=== PATIENT | female | born 1945 | race Caucasian/White ===

== ENCOUNTER → 2017-02-13 | Outpatient (CLI) | payer BC ==
[~2017-02-13] MED LIST: ACET-1138 PO; AMT25 PO; ASPI81TA28 PO; CALCTAB5 PO; CLB200 PO; COEN100C7 PO; ESOM20CA PO; LEVO100T7 PO; LOSA1TAB38 PO; METO25TA3 PO; OMEG10007 PO; PRAV20TA PO; SNK PO; ULT50X PO; [UNRECOGNIZED DRUG - REMARK] PO
--- NOTE | 2017-02-13 10:17 | DIAGNOSTIC IMAGING REPORT ---
CT SCAN OF THE CHEST WITHOUT IV CONTRAST CLINICAL HISTORY: Follow-up right lower lobe lesion. COMPARISON STUDY: Chest CT dated 09/19/2016 and 11/12/2015. PET/CT dated 01/11/2016. TECHNIQUE: CT scan of the thorax was performed from the thoracic inlet to the upper abdomen. Images are reviewed in the axial, sagittal, and coronal planes. IV contrast was not administered for this examination. CT DOSE: 331.07 mGycm FINDINGS: Thyroid: Atrophic. Thoracic aorta: There is mild atherosclerotic calcification of the thoracic aorta, which is normal in caliber and demonstrates 4-vessel variant arch anatomy. Heart: The heart is normal in size and without pericardial effusion. There are scattered coronary artery calcifications. The pulmonary trunk is normal in caliber. Lungs and pleural spaces: Biapical scarring is observed. There is no airspace consolidation or pleural effusion. There is a 1.8 x 1.0 cm (previously measured 2.3 x 1.4 cm) spiculated nodule in the right lower lobe seen on image #203. This distorts the adjacent major fissure and contains small calcifications either within or adjacent to the lesion. A 5 mm pulmonary nodule is seen in the left lower lobe on image #186. No new lesions are seen. The trachea and central airways are clear. Mediastinum: There is no mediastinal lymphadenopathy. Kiki: Not well assessed without IV contrast. Axillae: There is no axillary lymphadenopathy. Upper abdomen: Partially visualized upper abdominal viscera is within normal limits. Skeletal structures: The skeletal structures are osteopenic. No lytic or blastic bony lesions are seen. Mild degenerative change is seen throughout the thoracic spine. Arthritic change is also seen in the shoulders, and a surgical anchor is noted in the left humeral head. Soft tissues: Bilateral breast implants are identified. IMPRESSION: 1. Again seen is a spiculated nodule in the right lower lobe which distorts the adjacent major fissure. This has decreased in size from 09/19/2016 and remains pathologically indeterminant. Tissue sampling will likely be required for definitive characterization. 2. A 5 mm pulmonary nodule in the left lower lobe is unchanged. No new pulmonary nodules are identified. 3. There is no airspace consolidation or pleural effusion. 4. Additional changes as above. Electronically signed by: Joseph Bernabe M.D. 02/13/2017 10:15 AM Dictated Date/Time: 02/13/2017 10:09 AM
== END | disposition home or self-care (01) ==
LOC: C.CTS 09:50
PROVIDERS: ATTEND Internal Medicine Pulmonary Disease
DX: R91.8 Other nonspecific abnormal finding of lung field (principal); R91.1 Solitary pulmonary nodule

== ENCOUNTER → 2017-03-01 | Outpatient (CLI) | payer BC | END | disposition home or self-care (01) | LOC: C.PAPS 10:48 | PROVIDERS: ATTEND Obstetrics & Gynecology | DX: Z01.419 Encounter for gynecological examination (general) (routine) without abnormal findings (principal) ==

== ENCOUNTER → 2017-05-05 | Outpatient (CLI) | payer BC ==
[2017-05-05 10:11] LABS: CHOLESTEROL/HDL RATIO 2.5
[2017-05-05 11:14] LABS: ESTIMATED AVERAGE GLUCOSE 114 mg/dl; HA1C FLAG Normal (Normal)
== END | disposition home or self-care (01) ==
LOC: C.LAB1850 07:40
PROVIDERS: ATTEND Internal Medicine
DX: E78.00 Pure hypercholesterolemia, unspecified (principal); R73.9 Hyperglycemia, unspecified; E03.9 Hypothyroidism, unspecified

== ENCOUNTER → 2017-08-23 | Outpatient (CLI) | payer BC ==
[~2017-08-23] MED LIST changes: +OPTIRAY 320 IV PRN
--- NOTE | 2017-08-23 08:24 | DIAGNOSTIC IMAGING REPORT ---
CT OF THE CHEST WITH IV CONTRAST CLINICAL HISTORY: R91.8 Multiple pulmonary [id number] COMPARISON STUDY: 02/13/2017 , 07/11/2016 TECHNIQUE: Following the IV administration of 92 mL of Optiray-320, CT of the thorax was performed from the thoracic inlet to the lung bases. Images are reviewed in the axial, sagittal, and coronal planes. IV contrast was administered without complication. A dose lowering technique was utilized adhering to the principles of ALARA. CT DOSE: 323.19 mGycm FINDINGS: Thyroid: Imaged portions of the thyroid gland are normal in appearance. Thoracic aorta: The thoracic aorta is normal in course and caliber, noting standard 3-vessel arch anatomy. No aneurysm or dissection is seen. Pulmonary vasculature: The pulmonary trunk is normal in caliber. There are no central filling defects identified to suggest pulmonary embolus. Note that this examination was not protocoled for the evaluation of pulmonary emboli. HEART: The heart is normal in size and configuration, without pericardial effusion. Lungs and pleural spaces: There are no pleural effusions. There is a stable 5 mm solid left lower lobe pulmonary nodule as visualized on image #[id number]. There is a stable bilobed 5 x 2 mm right lower lobe pulmonary nodule as visualized in image #[id number]. There is a flat parenchymal opacity within the right lower lobe which is smaller than on the prior study. This is felt to represent resolving atelectasis. No new or enlarging pulmonary masses are visualized. Mediastinum: There is no mediastinal lymphadenopathy. Kiki: Clear. Axilla: Clear. Upper abdomen: There is hepatic steatosis. Skeletal structures: There are no lytic or blastic osseous lesions. IMPRESSION: 1. Interval decrease in the size of the relatively flat right lower lobe opacity. The interval decrease in the size of this lesion and its appearance favors resolving atelectatic change. 2. Stable solid 5 mm left lower lobe pulmonary nodule 3. Stable 2 x 5 mm right lower lobe pulmonary nodule 4. No new or enlarging nodules are visualized 5. No evidence of pathologic adenopathy Electronically signed by: Mario Lorenzana M.D. 08/23/2017 8:22 AM Dictated Date/Time: 08/23/2017 8:13 AM
== END | disposition home or self-care (01) ==
LOC: C.CTS 07:47
PROVIDERS: ATTEND Internal Medicine Pulmonary Disease
DX: R91.8 Other nonspecific abnormal finding of lung field (principal)

== ENCOUNTER → 2017-10-30 | Outpatient (CLI) | payer BC ==
[~2017-10-30] MED LIST changes: -OPTIRAY 320 IV PRN
[2017-10-30 09:40] LABS: HEMATOCRIT 38.4 % (37-47); MEAN CELL VOLUME 98.5 fL (80-100); MEAN CORPUSCULAR HEMOGLOBIN 33.1 pg (25-34); MEAN CORPUSCULAR HGB CONC 33.6 g/dl (32-36); PLATELET COUNT 259 K/uL (130-400); WHITE BLOOD COUNT 5.82 K/uL (4.8-10.8)
[2017-10-30 10:27] LABS: ESTIMATED AVERAGE GLUCOSE 114 mg/dl; HA1C FLAG Normal (Normal)
[2017-10-30 10:33] LABS: ALT/SGPT 41 U/L (12-78); AST/SGOT 25 U/L (15-37); BLOOD UREA NITROGEN 13 mg/dl (7-18); BUN/CREATININE RATIO 16.6 (10-20); CALCIUM 8.8 mg/dl (8.5-10.1); CARBON DIOXIDE 28 mmol/L (21-32); CHLORIDE 105 mmol/L (98-107); CREATININE 0.79 mg/dl (0.60-1.20); GLUCOSE 100 mg/dl (70-99); HDL CHOLESTEROL 91 mg/dl; POTASSIUM 4.2 mmol/L (3.5-5.1); SODIUM 137 mmol/L (136-145)
[2017-10-30 10:44] LABS: CHOLESTEROL 191 mg/dl (0-200); CHOLESTEROL/HDL RATIO 2.1; LDL CHOLESTEROL CALCULATED 84 mg/dl; TRIGLYCERIDES 81 mg/dl (0-150); VERY LOW DENSITY LIPOPROT CALC 16 mg/dl
== END | disposition home or self-care (01) ==
LOC: C.LAB1850 08:04
PROVIDERS: ATTEND Internal Medicine
DX: R73.9 Hyperglycemia, unspecified (principal); R91.8 Other nonspecific abnormal finding of lung field; E78.00 Pure hypercholesterolemia, unspecified; E03.9 Hypothyroidism, unspecified

== ENCOUNTER → 2018-06-22 | Outpatient (CLI) | payer BC ==
[~2018-06-22] MED LIST changes: +ACET-1256 PO; +CALC-51 PEG; +CLB/200 PO; -METO25TA3 PO; +METO25TA4 PO; +OXYC-57 PO; +TRAM-10 PO
[2018-06-22 09:58] LABS: ALT/SGPT 51 U/L (12-78); AST/SGOT 29 U/L (15-37); BLOOD UREA NITROGEN 13 mg/dl (7-18); CALCIUM 8.4 mg/dl (8.5-10.1); CARBON DIOXIDE 27 mmol/L (21-32); CHOLESTEROL 192 mg/dl (0-200); CREATININE 0.86 mg/dl (0.60-1.20); GLUCOSE 93 mg/dl (70-99); LDL CHOLESTEROL CALCULATED 100 mg/dl; POTASSIUM 4.4 mmol/L (3.5-5.1); SODIUM 138 mmol/L (136-145)
== END | disposition home or self-care (01) ==
LOC: C.LAB1850 08:35
PROVIDERS: ATTEND Internal Medicine
DX: E78.00 Pure hypercholesterolemia, unspecified (principal); I10 Essential (primary) hypertension; E03.9 Hypothyroidism, unspecified

== ENCOUNTER → 2018-07-03 | Outpatient (CLI) | payer BC ==
[~2018-07-03] MED LIST changes: -ACET-1138 PO; -CALC-51 PEG; -CALCTAB5 PO; -CLB200 PO; -OXYC-57 PO; -SNK PO; -ULT50X PO; -[UNRECOGNIZED DRUG - REMARK] PO
[2018-07-03 15:52] LABS: BASO % 0.4 %; BASO ABS # 0.03 K/uL (0-0.2); EOS % 3.1 %; EOS ABS # 0.21 K/uL (0-0.5); HEMOGLOBIN 12.8 g/dL (12.0-16.0); IG# 0.02 K/uL (0.00-0.02); LYMPH ABS # 2.25 K/uL (1.2-3.4); MEAN CELL VOLUME 97.9 fL (80-100); MEAN CORPUSCULAR HEMOGLOBIN 33.9 pg (25-34); MEAN CORPUSCULAR HGB CONC 34.6 g/dl (32-36); MEAN PLATELET VOLUME 9.9 fL (7.4-10.4); MONO % 6.2 %; MONO ABS # 0.42 K/uL (0.11-0.59); NEUT ABS # 3.89 K/uL (1.4-6.5); PLATELET COUNT 237 K/uL (130-400); RED CELL DISTRIBUTION WIDTH CV 13.5 % (11.5-14.5); RED CELL DISTRIBUTION WIDTH SD 48.5 fL (36.4-46.3); WHITE BLOOD COUNT 6.82 K/uL (4.8-10.8)
== END | disposition home or self-care (01) ==
LOC: C.CPL 15:24
PROVIDERS: ATTEND Orthopaedic Surgery
DX: S43.086A Other dislocation of unspecified shoulder joint, initial encounter (principal); X58.XXXA Exposure to other specified factors, initial encounter

== ENCOUNTER → 2018-07-12 | Day surgery (SDC) | payer BC ==
[2018-06-27 15:35] VITALS: Ht 160 cm; Wt 79.5 kg
[~2018-07-12] VITALS: Ht 160 cm; Wt 79.5 kg
[~2018-07-12] MED LIST changes: +ATROPINE SULFATE 0.1 MG/ML 5ML SYR IV PRN; +CEFAZOLIN 2000MG IV PUSH 15 ML IV SCH; +DEXAMETHASONE SOD INJ 4 MG/ML VIAL ONE; +EpHEDrine SULFATE INJ 50 MG/ML AMP IV PRN; +EpINEphrine INJ 1MG/ML AMP 1 MG/ML AMP ONE; +FENTANYL CITRATE INJ 50 MCG/1 ML 2 ML VIAL ONE; +FLUMAZENIL 0.1 MG/1 ML 10 ML VIAL IV ONE; +HYDROmorphone INJ 0.5 MG/0.5 ML SYR IV PRN; +KETO10TA PO; +KETOROLAC TROMETHAMINE 30 MG/ML VIAL IV. PRN; +LACTATED RINGER'S 1000ML 1,000 ML IV SCH; +LIDOCAINE HCL 2% 2 ML VIAL (20MG/ML) ONE; +MIDAZOLAM HCL 1 MG/ML 2ML VIAL ONE; +ONDANSETRON INJ 2 MG/ML 2 ML VIAL IV PRN; +ONDANSETRON INJ 2 MG/ML 2 ML VIAL ONE; +OXYC-57 PO; +OXYCODONE/ACETAMINOPHEN 5-325 TAB PO PRN; +PROPOFOL IV EMULSION 10 MG/ML 20 ML VIAL ONE; +ROPIVACAINE 0.5% 5 MG/ML 30 ML VIAL ONE; +SODIUM CHLORIDE 0.9% 1000ML 1,000 ML IV SCH
--- NOTE | 2018-07-12 10:04 | History & Physical Bridge Note ---
H&P Re-Evaluation Bridge Note: I have examined the patient, reviewed the History & Physical and in the interval since the performance of the History & Physical I have noted the following changes of clinical significance: No changes noted
[2018-07-12] MEDS: BUPIVACAINE 0.25% 30 ML VIAL ONE (11:30)
--- NOTE | 2018-07-12 13:12 | [facility] Post Operative Brief Note ---
Immediate Operative Summary Operative Date Jul 12, 2018. Pre-Operative Diagnosis Right Shoulder Large Rotator Cuff Tear Post-Operative Diagnosis Same Procedure(s) Performed Right Shoulder Arthroscopy With Large Rotator Cuff Repair Surgeon Dr. Pimentel Asbestos Worker Helper Surgeon(s) Shama Cartwright PA-C Estimated Blood Loss 5 mL Findings Consistent with Post-Op Diagnosis Specimens None Anesthesia Type [facility]
--- NOTE | 2018-07-12 13:18 | Discharge Instructions-SurgCtr ---
Discharge Instructions Date of Service Jul 12, 2018. Visit Reason for Visit: Right Shoulder Full Thickness Rotator Cuff Tear Discharge Discharge Diagnosis / Problem: SAME ABOVE Discharge Goals Goal(s): Decrease discomfort, Improve function Activity Recommendations Activity Limitations: as noted below Lifting Limitations: until after follow-up appointment Exercise/Sports Limitations: until after follow-up appointment Shower/Bathe: tomorrow Anesthesia . Post Anesthesia Instructions: If you have had General Anesthesia or IV Sedation: * Do not drive today. * Resume driving when surgeon permits. * Do not make important decisions or sign legal documents today. * Call surgeon for: 1. Temperature elevations greater than 101 degrees F. 2. Uncontrollable pain. 3. Excessive bleeding. 4. Persistent nausea and vomiting. 5. Medication intolerance (nausea, vomiting or rash). * For nausea and vomiting use only clear liquids such as: tea, soda, bouillon until nausea subsides, then gradually increase diet as tolerated. * If you have any concerns or questions, call your surgeon's office. If physician is unavailable and it is an emergency, call 911 or go to the nearest emergency room. . Instructions / Follow-Up Instructions / Follow-Up MEDICATIONS: * Resume previous medications unless instructed otherwise by your surgeon. * Always take pain medication on a full stomach or with food to avoid upset stomach. * Do not drink alcohol or drive while taking narcotics. * Ibuprofen or Tylenol may be taken if narcotic not needed. SPECIAL CARE INSTRUCTIONS: __ None _X_ Keep extremity elevated and iced x 48 hours; apply ice 20-30 minutes 8-10 times/day. May remove at night. __ Sling __24 hrs/day __ Remove at night _X_ Shoulder Immobilizer (MAY REMOVE AFTER 48 HOURS ONLY TO SHOWER) _X_ 24 hrs/day __ Remove at night _X_ Dressing __ Maintain until seen in office, may shower with plastic over site _X_ Remove dressings in 24-48 hours and then may shower _X_ Cover incisions with band-aids after showering __ Do not remove steri-strips Call physician if chills or temperature rises above 102 degrees or pain unrelieved by prescribed pain medications at . . Diet Recommendations Home Diet: no limitations Fluid Restriction: None Procedures Procedures Performed: Right Shoulder Arthroscopy With Large Rotator Cuff Repair Pending Studies Studies pending at discharge: no Work Instructions Return To Work: after follow-up Lifting Limitations: NO LIFTING WITH RIGHT ARM Medical Emergencies . Who to Call and When: Medical Emergencies: If at any time you feel your situation is an emergency, please call 911 immediately. . Non-Emergent Contact Non-Emergency issues call your: Surgeon Call Non-Emergent contact if: your pain is not controlled, wound has increased drainage, wound has increased redness . . "Provider Documentation" section prepared by Ulisses Cartwright. .
[2018-07-12 13:55] VITALS: TEMP 36.8
--- NOTE | 2018-07-12 14:04 | Anesthesia Progress Nt - [facility] ---
Anesthesia Post Op Note Date & Time Jul 12, 2018 at 14:04 Vital Signs Pain Intensity: 0 Vital Signs Past 12 Hours Date Time Temp Pulse Resp B/P (MAP) Pulse Ox O2 Delivery O2 Flow Rate FiO2 07/12/18 13:57 139/58 07/12/18 13:55 69 18 07/12/18 13:55 36.8 62 24 139/58 95 Room Air 07/12/18 13:55 64 18 93 07/12/18 13:51 120/66 07/12/18 13:50 61 26 07/12/18 13:50 63 26 07/12/18 13:46 145/61 07/12/18 13:45 22 07/12/18 13:45 64 22 07/12/18 13:41 115/73 07/12/18 13:40 68 18 98 07/12/18 13:40 66 18 07/12/18 13:36 125/47 07/12/18 13:35 51 12 99 07/12/18 13:35 51 12 07/12/18 13:31 120/47 07/12/18 13:30 50 13 07/12/18 13:30 50 13 99 07/12/18 13:26 111/44 07/12/18 13:25 51 13 07/12/18 13:25 51 13 99 07/12/18 13:21 109/44 07/12/18 13:20 52 14 07/12/18 13:20 52 14 99 07/12/18 13:16 99/49 07/12/18 13:15 36.0 52 20 99/49 99 Mask 6 07/12/18 11:10 65 0 07/12/18 11:09 72 07/12/18 11:06 145/63 07/12/18 11:04 64 0 94 07/12/18 11:04 64 07/12/18 11:02 161/85 07/12/18 10:59 74 0 97 07/12/18 10:59 75 07/12/18 10:56 158/85 07/12/18 10:54 69 07/12/18 10:54 68 0 97 07/12/18 10:51 155/74 07/12/18 10:49 72 07/12/18 10:49 72 0 97 07/12/18 10:46 155/70 07/12/18 10:44 70 0 96 07/12/18 10:44 70 07/12/18 10:41 142/81 07/12/18 10:39 71 07/12/18 10:39 71 0 97 07/12/18 10:36 162/81 07/12/18 10:34 72 07/12/18 10:34 72 0 96 07/12/18 10:32 146/97 07/12/18 10:25 36.9 71 18 146/97 (113) 97 Room Air Notes Mental Status: alert / awake / arousable, participated in evaluation Pt Amnestic to Procedure: Yes Nausea / Vomiting: adequately controlled Pain: adequately controlled Airway Patency, RR, SpO2: stable & adequate BP & HR: stable & adequate Hydration State: stable & adequate Anesthetic Complications: no major complications apparent
[2018-07-12 15:03] VITALS: BP 135/74; PULSE 77; O2SAT 96
--- NOTE | 2018-07-12 15:55 | OPERATIVE REPORT ---
DATE OF OPERATION: 07/12/2018 PREOPERATIVE DIAGNOSIS: Massive right rotator cuff tear following dislocation. POSTOPERATIVE DIAGNOSIS: Massive right rotator cuff tear following dislocation. PROCEDURES: Right shoulder diagnostic arthroscopy with extensive debridement, acromioplasty and massive rotator cuff repair. SURGEON: Dr. Joe Pimentel. DOPE WEIGH OPERATOR: Ulisses Cartwright PA-C, whose assistance was necessary for positioning the arm and help with instrumentation. ANESTHESIA: General with a right interscalene nerve block. COMPLICATIONS: None. CONDITION: Stable to PACU. INDICATIONS: Nimo is a pleasant 72-year-old female who dislocated her right shoulder 3 months ago. She was slow to recover. I got an MRI. MRI showed a massive rotator cuff tear. She elected to undergo arthroscopy. DESCRIPTION OF PROCEDURE: 07/12/2018, she arrived at [facility] for the above procedure. She was seen in the preoperative holding area and the operative extremity was identified and signed. She was given a preoperative antibiotic and a right interscalene nerve block. She was taken back to the operating room, laid on the table in supine position and put under general anesthesia. She was then put into the beachchair position. The right shoulder was prepped and draped in sterile fashion. Time-out was done and the patient's operative extremity was properly identified. A scope was introduced in the posterior portal. Diagnostic arthroscopy showed no cartilage damage to the humeral head or the glenoid. There was a little fraying of the labrum. The biceps tendon was absent. There was a tear of the upper half of the subscapularis, the entire supraspinatus and the majority of the infraspinatus. An anterior portal was made. A shaver was used to do a debridement of the intraarticular structures. The scope was then put into the subacromial space. A lateral portal was made. A shaver was used to do a complete subacromial and subdeltoid bursectomy. Significant time was spent doing extensive debridement to ensure properly visualize the extent of the massive cuff tear. An ablator was used to tease the coracoacromial ligament off the undersurface of the acromion. I do not feel acromioplasty was necessary. An additional anterolateral portal was made and Sujata cannulas were placed in each lateral portals. The greater tuberosity was prepared with a ring curette and a microfracture. The rotator cuff was then fixed with an Arthrex SpeedBridge configuration using BioComposite SwiveLock suture anchors loaded with FiberTapes. The tapes were passed through the tendon at the anticipated articular margin. The tapes were then brought down to 1 of 4 lateral row SwiveLock suture anchors. This gave a nice knotless SpeedBridge repair. Multiple pictures were taken. The stay stitches were also passed through the tendon and tied across anchor to each other to hold down the medial row. The scope was placed back into the glenohumeral joint and the articular margin of the rotator cuff had been restored. Pictures were taken. Arthroscopic instruments were removed from the shoulder. Portal sites were closed with 3-0 nylon. She was then placed in a soft dressing and abduction arm sling. She was then extubated, transferred to a litter and taken to the postanesthesia care unit in stable condition. She tolerated the procedure well. I attest to the content of the Intraoperative Record and any orders documented therein. Any exception s are noted below.
== END | disposition home or self-care (01) ==
LOC: X.SURG 10:07
PROVIDERS: ATTEND Orthopaedic Surgery
DX: M75.101 Unspecified rotator cuff tear or rupture of right shoulder, not specified as traumatic (principal); I10 Essential (primary) hypertension; M79.7 Fibromyalgia; E03.9 Hypothyroidism, unspecified; Z79.899 Other long term (current) drug therapy; Z79.82 Long term (current) use of aspirin; K21.9 Gastro-esophageal reflux disease without esophagitis; M19.90 Unspecified osteoarthritis, unspecified site; Z88.5 Allergy status to narcotic agent; Z88.8 Allergy status to other drugs, medicaments and biological substances

== ENCOUNTER 2019-05-31 14:20 | Inpatient (IN) ==
[2019-05-31] MEDS ORDERED: ONDANSETRON INJ 2 MG/ML 2 ML VIAL IV STA (14:53)
[2019-05-31] MEDS ORDERED: KETOROLAC TROMETHAMINE 15 MG/ML VIAL IV STA (14:53)
[2019-05-31 14:59] LABS: Basophils # (auto) 0.02 K/uL (0-0.2); Basophils % (auto) 0.2 %; Eosinophils # (auto) 0.02 K/uL (0-0.5); Eosinophils % (auto) 0.2 %; Hematocrit (blood only) 38.3 % (37-47); Hemoglobin 13.1 g/dL (12.0-16.0); Immature Granulocytes # (auto) 0.03 K/uL (0.00-0.02); Immature Granulocytes % (auto) 0.3 %; Lymphocytes # (auto) 1.05 K/uL (1.2-3.4); Lymphocytes % (auto) 8.9 %; Mean Corpuscular Hgb Conc 34.2 g/dL (32-36); Mean Corpuscular Volume 96.7 fL (80-100); Mean Platelet Volume 10.2 fL (7.4-10.4); Monocytes # (auto) 0.56 K/uL (0.11-0.59); Monocytes % (auto) 4.7 %; Neutrophils # (auto) 10.15 K/uL (1.4-6.5); Neutrophils % (auto) 85.7 %; Platelet Count 239 K/uL (130-400); Red Blood Count 3.96 M/uL (4.2-5.4); White Blood Count 11.83 K/uL (4.8-10.8)
[2019-05-31] MEDS ORDERED: SODIUM CHLORIDE 0.9% 500 ML IV SCH (15:00)
[2019-05-31 15:24] LABS: Albumin Level 3.6 gm/dl (3.4-5.0); BUN Creatinine Ratio 16.8 (10-20); Bilirubin,Total 0.6 mg/dl (0.2-1); Calcium 9.5 mg/dl (8.5-10.1); Creatinine Clr Calc Pharmacy 59.7 ml/min; Est GFR (African American) 80.5; Est GFR (Non-African American) 69.5; Globulin 3.7 gm/dl (2.5-4.0); Total Protein 7.3 gm/dl (6.4-8.2)
[2019-05-31 15:35] LABS: Appearance Urine Cloudy (Clear); Bacteria Urine Automated Negative (Negative); Bilirubin Urine Negative (Negative); Blood Urine Negative (Negative); Cast Urine Automated 0 /lpf (0-5); Color Urine Yellow; Glucose Urine UA Negative (Negative); Ketones Urine Trace (Negative); Leukocyte Esterase Urine Negative (Negative); Nitrite Urine Negative (Negative); Protein Urine Negative (Negative); RBC Urine Automated 0-4 /hpf (0-4); Specific Gravity Urine 1.021 (1.000-1.030); Urobilinogen Urine Negative (Negative); WBC Urine Automated 0 /hpf (0-5); pH Urine 7.5 (4.5-7.5)
[2019-05-31] MEDS ORDERED: IOVERSOL 100ml IV PRN (15:43)
--- NOTE | 2019-05-31 15:59 | CT Scan Report ---
ABDOMEN AND PELVIS CT WITH IV CONTRAST CT DOSE: 480.69 mGy.cm HISTORY: Acute left lower quadrant abdominal pain llq pain TECHNIQUE: Multiaxial CT images of the abdomen and pelvis were performed following the use of intrave nous contrast. A dose lowering technique was utilized adhering to the principles of ALARA. COMPARISON STUDY: PET CT 01/11/2016 FINDINGS: Mild dependent subsegmental bibasilar atelectasis. There is no pneumatosis or pneumoperitoneum. The c ardiac chambers appear unremarkable. Coronary arterial calcifications are noted. Mildly contracted gallbladder. Spleen, liver, pancreas and adrenal glands appear unremarkable. There are no renal or ureteral calculi or obstructive uropathy identified. 8 mm cyst of the inferior pole r ight kidney. Urinary bladder and uterus appear unremarkable. Moderate mixed plaque formation of the a jassi without aneurysm. No adenopathy by CT size criteria. No bowel obstruction. Mild nonspecific peritoneal thickening adjacent to the proximal sigmoid colon. Colonic diverticulosis without acute diverticulitis. Terminal ileum is fluid-filled. 6 mm appendicoli th noted about the proximal appendiceal lumen. The appendix is dilated and fluid-filled measuring up to 11 mm transversely. Mild periappendiceal inflammatory stranding with trace free fluid. No evidence of perforation or drainable fluid collection. Bilateral saline breast implants. Soft tissues are oth erwise unremarkable. The bones appear to be intact. Degenerative changes of the spine, pelvis and hip s. IMPRESSION: 1. Findings compatible with acute uncomplicated appendicitis with obstructing appendicolith. No evide nce of perforation or drainable fluid collection. 2. No bowel obstruction. 3. Colonic diverticulosis without acute diverticulitis. 4. Additional findings as above. Electronically signed by: Jr Cavazos M.D. 05/31/2019 3:58 PM
[2019-05-31 16:09] LABS: Potassium 3.7 mmol/L (3.5-5.1)
[2019-05-31] MEDS ORDERED: cefOXitin 2,000 MG/60 ML BAG IV STA (16:26)
--- NOTE | 2019-05-31 16:49 | History & Physical Report ---
Date of Service May 31, 2019 Assessment & Plan (1) Acute appendicitis: Will plan for laparoscopic appendectomy this evening. Preop Mefoxin. Dr Sigala- evaluated pt in ER - agree with plan lap appendectomy , possible open appendectomy History of Present Illness Primary Care Provider: Oseas Thorpe MD 73 y/o female awoke with LLQ abdominal pain around 7:00 this morning. Had a smoothie at 7:30. Continued to have pain and came to the ED. No fevers or chills. Possibly remote history of diverticulitis. Allergies Allergy/AdvReac Type Severity Reaction Status Date / Time vitamin E (d-alpha Allergy Mild RASH WITH Verified 05/31/19 14:43 tocopherol) OIL adhesive Allergy Unknown RASH AND Verified 05/31/19 14:43 BLISTERING WITH STERISTRIPES/DERMABOND BLISTERS codeine AdvReac Unknown NAUSEA AND Verified 05/31/19 14:43 VOMITING Home Medications Home Medications Medication Instructions Recorded Confirmed Type amitriptyline 25 mg PO HS 05/31/19 05/31/19 History aspirin 81 mg PO HS 05/31/19 05/31/19 History calcium carbonate-vitamin D3 1 cap PO QDL 05/31/19 05/31/19 History [Calcium 600 + D(3)] cannabidiol (CBD) extract 10 mg PO HS 05/31/19 05/31/19 History cannabidiol (CBD) extract 25 mg PO QDL 05/31/19 05/31/19 History coenzyme Q10 [CoQ-10] 100 mg PO QDL 05/31/19 05/31/19 History levothyroxine 112 mcg PO QAM 05/31/19 05/31/19 History losartan 100 mg PO QAM 05/31/19 05/31/19 History metoprolol succinate 75 mg PO HS 05/31/19 05/31/19 History omega 4-wju-zth-fish oil [[place]-3] 1 cap PO QDL 05/31/19 05/31/19 History pravastatin 20 mg PO HS 05/31/19 05/31/19 History tramadol 50 mg PO Q12 05/31/19 05/31/19 History Past Med/Surg History Medical History High cholesterol Hypertension Hypothyroid No significant past medical history Surgical History H/O laparoscopy Social History Preferred Language: Mohawk Feels Safe at Home: Yes Smoking Status: Former smoker Review of Systems Constitutional: no fever, no chills, no malaise and no anorexia Cardiovascular: no chest pain and no chest pain at rest Gastrointestinal: + abdominal pain, + heartburn and + nausea; no bloating and no vomiting Physical Exam Constitutional: WD/WN, vitals as above no acute distress Respiratory: normal respiratory effort, lungs clear to auscultation Cardiovascular: RRR, no murmur, no edema Gastrointestinal (Abdomen): Inspection/Auscultation: abdomen not distended Percussion/Palpation: + abdomen tender (RLQ mild but recently medicated) and abdomen soft; no guarding Skin: no rashes, warm and dry Results & Data Vital Signs (Past 12 Hours) Vital Signs Temp Pulse Pulse Resp BP BP Pulse Ox 05/31/19 15:53 85 18 150/61 H 99 05/31/19 15:06 59 L 20 171/66 H 97 05/31/19 14:24 37 C 70 17 153/83 H 98 (1) Acute appendicitis Acute appendicitis type: unspecified acute appendicitis type Qualified Code(s): K35.80 - Unspecified acute appendicitis
[2019-05-31] MEDS ORDERED: BUPIVACAINE 0.5 % 5 MG/1 ML MPF 30ML VIAL ONE (17:04)
--- NOTE | 2019-05-31 17:18 | Anesthesiology Consultation ---
Date of Service May 31, 2019 Assessment & Plan (1) Encounter for pre-operative examination: Chart Review Chart Review: Acceptable Risk for Surgery and Patient NOT seen in Pre Admission Testing Consults Requested none History Surgery Operation Date: 05/31/19 10:50 Proposed Procedures p Laparoscopic Appendectomy - Steven Sigala MD, FACS Height/Weight Height: 5 ft 3 in Weight: 80.5 kg Allergies Allergy/AdvReac Type Severity Reaction Status Date / Time vitamin E (d-alpha Allergy Mild RASH WITH Verified 05/31/19 14:43 tocopherol) OIL adhesive Allergy Unknown RASH AND Verified 05/31/19 14:43 BLISTERING WITH STERISTRIPES/DERMABOND BLISTERS codeine AdvReac Unknown NAUSEA AND Verified 05/31/19 14:43 VOMITING Medications Home Medications Medication Instructions Recorded Confirmed Last Taken amitriptyline 25 mg PO HS 05/31/19 05/31/19 05/30/19 aspirin 81 mg PO HS 05/31/19 05/31/19 05/30/19 calcium carbonate-vitamin D3 1 cap PO QDL 05/31/19 05/31/19 05/30/19 [Calcium 600 + D(3)] cannabidiol (CBD) extract 10 mg PO HS 05/31/19 05/31/19 05/30/19 cannabidiol (CBD) extract 25 mg PO QDL 05/31/19 05/31/19 05/30/19 coenzyme Q10 [CoQ-10] 100 mg PO QDL 05/31/19 05/31/19 05/30/19 levothyroxine 112 mcg PO QAM 05/31/19 05/31/19 05/31/19 losartan 100 mg PO QAM 05/31/19 05/31/19 05/31/19 metoprolol succinate 75 mg PO HS 05/31/19 05/31/19 05/30/19 omega 8-uww-fah-fish oil [[place]-3] 1 cap PO QDL 05/31/19 05/31/19 05/30/19 pravastatin 20 mg PO HS 05/31/19 05/31/19 05/30/19 tramadol 50 mg PO Q12 05/31/19 05/31/19 Unknown Active Medications Generic Name Dose Route Start Last Admin Trade Name Freq PRN Reason Stop Dose Admin Ioversol 88 ml 05/31/19 15:43 05/31/19 15:44 Optiray 320 100ml IV 06/04/19 15:42 88 ml ONCE PRN Administration Interaction Checking NPO Date Last Intake of Fluids: 05/31/19 Time Last Intake of Fluids: 14:00 Date Last Intake of Solids: 05/30/19 Past Medical History Medical History High cholesterol Hypertension Hypothyroid No significant past medical history Past Surgical History Surgical History H/O laparoscopy Social History Smoking Status: Former smoker Physical Exam Vital Signs Last Vital Signs Temp 37 C 05/31/19 14:24 Pulse 80 05/31/19 16:54 Resp 14 05/31/19 16:58 BP 172/78 H 05/31/19 16:54 Pulse Ox 99 05/31/19 16:58 Testing Laboratory Results 05/31/19 14:45 05/31/19 15:47 Urine Color Yellow 05/31/19 15:05 Urine Appearance Cloudy (Clear) A 05/31/19 15:05 Urine pH 7.5 (4.5-7.5) 05/31/19 15:05 Ur Specific [place] 1.021 (1.000-1.030) 05/31/19 15:05 Urine Protein Negative (Negative) 05/31/19 15:05 Urine Glucose (UA) Negative (Negative) 05/31/19 15:05 Urine Ketones Trace (Negative) H 05/31/19 15:05 Urine Nitrite Negative (Negative) 05/31/19 15:05 Ur Leukocyte Esterase Negative (Negative) 05/31/19 15:05 Urine WBC (Auto) 0 /hpf (0-5) 05/31/19 15:05 Urine RBC (Auto) 0-4 /hpf (0-4) 05/31/19 15:05 U Hyaline Cast (Auto) 0 /lpf (0-5) 05/31/19 15:05 U Epithel Cells (Auto) 10-20 /lpf (0-5) H 05/31/19 15:05 Urine Bacteria (Auto) Negative (Negative) 05/31/19 15:05
[2019-05-31] MEDS ORDERED: HYDROmorphone INJ 1 MG/ML SYRINGE IV PRN (17:24)
[2019-05-31] MEDS ORDERED: ATROPINE SULFATE 0.1 MG/ML 10ML SYR IV PRN (17:24)
[2019-05-31] MEDS ORDERED: ePHEDrine sulfate 50 MG/ML AMP IV PRN (17:24)
[2019-05-31] MEDS ORDERED: NEOSTIGMINE METHYLSULFATE 5 MG/5 ML SYR ONE (17:28)
[2019-05-31] MEDS ORDERED: SUCCINYLCHOLINE CHLORIDE 20 MG/ML 10 ML VIAL ONE (17:28)
[2019-05-31] MEDS ORDERED: LIDOCAINE HCL 2% 2 ML VIAL/AMP(20MG/ML) INFIL ONE (17:28)
[2019-05-31] MEDS ORDERED: PROPOFOL IV EMULSION 10 MG/ML 20 ML VIAL IV ONE (17:28)
[2019-05-31] MEDS ORDERED: ePHEDrine sulfate 50 MG/ML AMP ONE (17:28)
[2019-05-31] MEDS ORDERED: DEXAMETHASONE SOD INJ 4 MG/ML VIAL ONE (17:28)
[2019-05-31] MEDS ORDERED: GLYCOPYRROLATE 0.2 MG/ML VIAL ONE (17:28)
[2019-05-31] MEDS ORDERED: ONDANSETRON INJ 2 MG/ML 2 ML VIAL ONE (17:28)
[2019-05-31] MEDS ORDERED: PHENYLEPHRINE HCL 10 MG/ML VIAL ONE (17:28)
[2019-05-31] MEDS ORDERED: fentaNYL citrate 100 MCG/2 ML VIAL ONE (17:29)
[2019-05-31] MEDS ORDERED: MIDAZOLAM HCL 1 MG/ML 2ML VIAL ONE (17:29)
--- NOTE | 2019-05-31 18:35 | Operative Report ---
Post Operative Report Pre & Post Diagnosis Operation Date: 05/31/19 10:50 Pre-Op Diagnosis: Acute Appendicitis Post-Op Diagnosis: Acute Appendicitis Procedure Operation Date: 05/31/19 10:50 Actual Procedures p Laparoscopic Appendectomy(Not Applicable) - Steven Sigala MD, FACS Surgeon Steven Sigala MD, FACS Electronics Test Engineer nurses Estimated Blood Loss 10 Findings Consistent with Post-Op Diagnosis Specimens appendix Description of Procedure see dictation I attest to the content of the Intraoperative Record and any orders documented therein. Any exceptions are noted below.
[2019-05-31] MEDS ORDERED: ACETAMINOPHEN 1,000 MG/100 ML VIAL IV STA (18:39)
[2019-05-31] MEDS ORDERED: ACETAMINOPHEN 325 MG TAB PO PRN (18:42)
[2019-05-31] MEDS ORDERED: IBUPROFEN 600 MG TAB PO PRN (18:42)
[2019-05-31] MEDS ORDERED: PROMETHAZINE HCL 12.5 MG in SODIUM CHLORIDE 0.9% 50 ML IV PRN (18:42)
[2019-05-31] MEDS ORDERED: MoRPHine SULFATE 2 MG/ML CARP IV PRN ×2 (18:42)
[2019-05-31] MEDS ORDERED: ONDANSETRON INJ 2 MG/ML 2 ML VIAL IV PRN (18:42)
--- NOTE | 2019-05-31 19:19 | Anesthesiology Progress Note ---
Date of Service May 31, 2019 Anesthesia Post Procedure Vital Signs Vital Signs: Temp Pulse Pulse Pulse Resp BP BP 05/31/19 19:10 36.4 C L 64 18 111/54 L 05/31/19 19:00 36.4 C L 61 14 132/55 L 05/31/19 18:52 36.4 C L 70 16 132/51 L 05/31/19 17:26 36.7 C 81 18 182/72 H 05/31/19 16:58 14 05/31/19 16:54 80 14 172/78 H 05/31/19 15:53 85 18 150/61 H 05/31/19 15:06 59 L 20 171/66 H 05/31/19 14:24 37 C 70 17 153/83 H Pulse Ox 05/31/19 19:10 100 05/31/19 19:00 100 05/31/19 18:52 98 05/31/19 17:26 98 05/31/19 16:58 99 05/31/19 16:54 99 05/31/19 15:53 99 05/31/19 15:06 97 05/31/19 14:24 98 Pain Intensity Left Abdomen: Pain Intensity: 5 Transfer of Care Handoff Completed per policy Notes Mental Status: alert / awake / arousable Patient Amnestic to Procedure: Yes Nausea / Vomiting: adequately controlled Pain: adequately controlled Airway Patency, RR, SpO2: stable & adequate BP & HR: stable & adequate Hydration State: stable & adequate Anesthetic Complications: no major complications apparent and Pt Satisfied with anesthetic care
[2019-05-31] MEDS: METOPROLOL SUCC 25MG EXT REL TAB PO SCH (21:16)
[2019-05-31] MEDS: PRAVASTATIN SOD 20 MG TAB PO SCH (21:16)
[2019-05-31] MEDS: AMITRIPTYLINE HCL 25 MG TAB PO SCH (21:16)
[2019-05-31] MEDS ORDERED: DOCUSATE SODIUM 100 MG CAP PO PRN (21:25)
[2019-05-31] MEDS ORDERED: BISACODYL 5 MG TABEC PO PRN (21:25)
[2019-05-31] MEDS: TRAMADOL HCL 50 MG TABLET PO PRN (21:36)
[2019-05-31] MEDS: SODIUM CHLORIDE 0.9% 1000ML 1,000 ML IV SCH (22:26)
--- NOTE | 2019-05-31 22:34 | Hospitalist Consultation ---
Date of Consultation May 31, 2019 Assessment & Plan (1) Acute appendicitis: S/p laparoscopic appendectomy performed by Dr. Sigala today. Well tolerated, no complications identified. Patient seems to be doing well, pain fairly well controlled -Pain and nause control and bowel regimen per surgical team -Patient is on ASA 81mg po daily, no known heart disease. May resume when ok with surgical team Present on Admission?: Yes (2) Hypertension: Blood pressure presently 139/63 -Pain control as above -Continue Losartan 100mg po q AM and Metoprolol 75mg po qHS -Continue to monitor Present on Admission?: Yes (3) Dyslipidemia: Chronic -Continue Pravastatin 20mg po qHS -Coenzyme Q10 and fish oil may be resumed after discharge Present on Admission?: Yes (4) Hypothyroid: Chronic -Continue Synthroid 112mcg po daily (5) Fibromyalgia: Well controlled with CBD oil. Patient states that she was unable to discontinue Celebrex at home since using CBD -She may continue CBD at home if she chooses Thank you for this consult. Please do not hesitate to contact the Hospitalist Service with any additional questions or concerns. Present on Admission?: Yes History of Present Illness Reason for Consultation: Medical management Attending Physician: Steven Sigala MD, FACS History of Present Illness Nimo Fitzpatrick is a pleasant 73yo C female with history of HTN, HLP, Hypothyroid a nd Fibromyalgia who presented to the ER today with abdominal pain. She was found to have acute appendicitis and was taken to the OR by Dr. Sigala for a laparoscopic appendectomy. The surgery was well tolerated with no complications identified. Minimal blood loss. Patient was returned to the medical floor in stable condition. Presently she has some mild abdominal distention and pain. She has not yet passed gas or had a bowel movement. She ambulated to the restroom without difficulty. She ate some fruit and crackers for dinner without difficulty. No additional complaints at this time Allergies Allergy/AdvReac Type Severity Reaction Status Date / Time vitamin E (d-alpha Allergy Mild RASH WITH Verified 05/31/19 14:43 tocopherol) OIL adhesive Allergy Unknown RASH AND Verified 05/31/19 14:43 BLISTERING WITH STERISTRIPES/DERMABOND BLISTERS codeine AdvReac Unknown NAUSEA AND Verified 05/31/19 14:43 VOMITING Home Medications Home Medications Medication Instructions Recorded Confirmed Type amitriptyline 25 mg PO HS 05/31/19 05/31/19 History aspirin 81 mg PO HS 05/31/19 05/31/19 History calcium carbonate-vitamin D3 1 cap PO QDL 05/31/19 05/31/19 History [Calcium 600 + D(3)] cannabidiol (CBD) extract 10 mg PO HS 05/31/19 05/31/19 History cannabidiol (CBD) extract 25 mg PO QDL 05/31/19 05/31/19 History coenzyme Q10 [CoQ-10] 100 mg PO QDL 05/31/19 05/31/19 History levothyroxine 112 mcg PO QAM 05/31/19 05/31/19 History losartan 100 mg PO QAM 05/31/19 05/31/19 History metoprolol succinate 75 mg PO HS 05/31/19 05/31/19 History omega 3-mjv-mqt-fish oil [[place]-3] 1 cap PO QDL 05/31/19 05/31/19 History pravastatin 20 mg PO HS 05/31/19 05/31/19 History tramadol 50 mg PO Q12 05/31/19 05/31/19 History Patient History Medical History Fibromyalgia High cholesterol Hypertension Hypothyroid Surgical History H/O laparoscopy History of knee surgery History of rotator cuff surgery Family History Other Coronary heart disease Social History Preferred Language: Greek Communication Ability: Effective Brine Well Operator Required: No Beliefs That Will Affect Care: None Current Living Situation: Spouse Other Information That Helps Us Care for You: No Feels Safe at Home: Yes Safety Concerns: Feels Safe At This Time Smoking Status: Former smoker Do You Dip or Chew Tobacco: No Second Hand Exposure: No Tobacco Cessation Education Requested by Patient: No Hx Alcohol Use: Yes Alcohol type: wine Hx Substance Use: No Review of Systems Review of Systems: All systems reviewed & are unremarkable except as noted in HPI & below Physical Exam Physical Exam: General: patient resting comfortably, NAD, non-toxic in appearance, AA&O x 4 Skin: warm, dry, no rashes or lesions HEENT: NC/AT, PERRL, EOMI, anicteric sclera, conjunctiva without injection, external ear normal to inspection and nontender, nares patent, moist mucus membranes, dentition intact, no oropharyngeal lesions, neck supple, trachea midline, no LAD, no thyromegaly, no JVD Heart: +S1/S2, regular, no m/r/g Lungs: equal air entry bilaterally, no rales/rhonchi/wheezes Abd: +BS, soft, mildly distended, no masses/organomegaly/ascites, surgical sites with dressing in place, c/d/i, no bleeing or drainage Ext: warm, 2+ pulses in UE/LE bilaterally, no clubbing/cyanosis or edema, SCDs in place Neuro: nonfocal, patient AA&O x 4, speech intact, no facial droop, moving all extremities on command with equal strength 5/5 Results & Data Vital Signs (Past 12 Hours) Vital Signs Temp Pulse Pulse Pulse Resp BP BP 05/31/19 21:35 36.8 C 61 16 139/63 05/31/19 21:16 64 05/31/19 20:35 36.5 C 55 L 17 133/75 05/31/19 20:02 36.3 C L 51 L 16 134/65 05/31/19 19:35 37.1 C 55 L 16 129/66 05/31/19 19:30 36.6 C 54 L 17 126/55 L 05/31/19 19:20 36.6 C 53 L 16 128/53 L 05/31/19 19:10 36.4 C L 64 18 111/54 L 05/31/19 19:00 36.4 C L 61 14 132/55 L 05/31/19 18:52 36.4 C L 70 16 132/51 L 05/31/19 17:26 36.7 C 81 18 182/72 H 05/31/19 16:58 14 05/31/19 16:54 80 14 172/78 H 05/31/19 15:53 85 18 150/61 H 05/31/19 15:06 59 L 20 171/66 H 05/31/19 14:24 37 C 70 17 153/83 H Pulse Ox 05/31/19 21:35 95 05/31/19 21:16 05/31/19 20:35 99 05/31/19 20:02 100 05/31/19 19:35 100 05/31/19 19:30 100 05/31/19 19:20 100 05/31/19 19:10 100 05/31/19 19:00 100 05/31/19 18:52 98 05/31/19 17:26 98 05/31/19 16:58 99 05/31/19 16:54 99 05/31/19 15:53 99 05/31/19 15:06 97 05/31/19 14:24 98 Laboratory Results Lab Results 05/31/19 05/31/19 05/31/19 Range/Units 14:45 14:45 15:05 WBC 11.83 H (4.8-10.8) K/uL RBC 3.96 L (4.2-5.4) M/uL Hgb 13.1 (12.0-16.0) g/dL Hct 38.3 (37-47) % MCV 96.7 (80-100) fL MCH 33.1 (25-34) pg MCHC 34.2 (32-36) g/dL RDW Std Deviation 50.0 H (36.4-46.3) fL RDW Coeff of Darryl 14.0 (11.5-14.5) % Plt Count 239 (130-400) K/uL MPV 10.2 (7.4-10.4) fL Immature Gran % (Auto) 0.3 % Neut % (Auto) 85.7 % Lymph % (Auto) 8.9 % [place]lier % (Auto) 4.7 % Eos % (Auto) 0.2 % Baso % (Auto) 0.2 % Immature Gran # (Auto) 0.03 H (0.00-0.02) K/uL Neut # (Auto) 10.15 H (1.4-6.5) K/uL Lymph # (Auto) 1.05 L (1.2-3.4) K/uL Collier # (Auto) 0.56 (0.11-0.59) K/uL Eos # (Auto) 0.02 (0-0.5) K/uL Baso # (Auto) 0.02 (0-0.2) K/uL Sodium 137 (136-145) mmol/L Potassium (3.5-5.1) mmol/L Chloride 103 (98-107) mmol/L Carbon Dioxide 25 (21-32) mmol/L Anion Gap 10.0 (3-11) BUN 14 (7-18) mg/dl Creatinine 0.83 (0.6-1.2) mg/dl Est Cr Clr Drug Dosing 59.7 ml/min Est GFR ( Amer) 80.5 Est GFR (Non-Af Amer) 69.5 BUN/Creatinine Ratio 16.8 (10-20) Glucose 115 H (70-99) mg/dl Calcium 9.5 (8.5-10.1) mg/dl Total Bilirubin 0.6 (0.2-1) mg/dl AST (15-37) U/L ALT 35 (12-78) U/L Alkaline Phosphatase 115 (45-117) U/L Total Protein 7.3 (6.4-8.2) gm/dl Albumin 3.6 (3.4-5.0) gm/dl Globulin 3.7 (2.5-4.0) gm/dl Albumin/Globulin Ratio 1.0 (0.9-2) Lipase 97 (73-393) U/L Urine Color Yellow Urine Appearance Cloudy A (Clear) Urine pH 7.5 (4.5-7.5) Ur Specific [place] 1.021 (1.000-1.030) Urine Protein Negative (Negative) Urine Glucose (UA) Negative (Negative) Urine Ketones Trace H (Negative) Urine Blood Negative (Negative) Urine Nitrite Negative (Negative) Urine Bilirubin Negative (Negative) Urine Urobilinogen Negative (Negative) Ur Leukocyte Esterase Negative (Negative) Urine WBC (Auto) 0 (0-5) /hpf Urine RBC (Auto) 0-4 (0-4) /hpf U Hyaline Cast (Auto) 0 (0-5) /lpf U Epithel Cells (Auto) 10-20 H (0-5) /lpf Urine Bacteria (Auto) Negative (Negative) 05/31/19 Range/Units 15:47 WBC (4.8-10.8) K/uL RBC (4.2-5.4) M/uL Hgb (12.0-16.0) g/dL Hct (37-47) % MCV (80-100) fL MCH (25-34) pg MCHC (32-36) g/dL RDW Std Deviation (36.4-46.3) fL RDW Coeff of Darryl (11.5-14.5) % Plt Count (130-400) K/uL MPV (7.4-10.4) fL Immature Gran % (Auto) % Neut % (Auto) % Lymph % (Auto) % Collier % (Auto) % Eos % (Auto) % Baso % (Auto) % Immature Gran # (Auto) (0.00-0.02) K/uL Neut # (Auto) (1.4-6.5) K/uL Lymph # (Auto) (1.2-3.4) K/uL Collier # (Auto) (0.11-0.59) K/uL Eos # (Auto) (0-0.5) K/uL Baso # (Auto) (0-0.2) K/uL Sodium (136-145) mmol/L Potassium 3.7 (3.5-5.1) mmol/L Chloride (98-107) mmol/L Carbon Dioxide (21-32) mmol/L Anion Gap (3-11) BUN (7-18) mg/dl Creatinine (0.6-1.2) mg/dl Est Cr Clr Drug Dosing ml/min Est GFR ( Amer) Est GFR (Non-Af Amer) BUN/Creatinine Ratio (10-20) Glucose (70-99) mg/dl Calcium (8.5-10.1) mg/dl Total Bilirubin (0.2-1) mg/dl AST 19 (15-37) U/L ALT (12-78) U/L Alkaline Phosphatase (45-117) U/L Total Protein (6.4-8.2) gm/dl Albumin (3.4-5.0) gm/dl Globulin (2.5-4.0) gm/dl Albumin/Globulin Ratio (0.9-2) Lipase (73-393) U/L Urine Color Urine Appearance (Clear) Urine pH (4.5-7.5) Ur Specific [place] (1.000-1.030) Urine Protein (Negative) Urine Glucose (UA) (Negative) Urine Ketones (Negative) Urine Blood (Negative) Urine Nitrite (Negative) Urine Bilirubin (Negative) Urine Urobilinogen (Negative) Ur Leukocyte Esterase (Negative) Urine WBC (Auto) (0-5) /hpf Urine RBC (Auto) (0-4) /hpf U Hyaline Cast (Auto) (0-5) /lpf U Epithel Cells (Auto) (0-5) /lpf Urine Bacteria (Auto) (Negative) Diagnostic Findings ABDOMEN AND PELVIS CT WITH IV CONTRAST CT DOSE: 480.69 mGy.cm HISTORY: Acute left lower quadrant abdominal pain llq pain TECHNIQUE: Multiaxial CT images of the abdomen and pelvis were performed following the use of intravenous contrast. A dose lowering technique was utilized adhering to the principles of ALARA. COMPARISON STUDY: PET CT 01/11/2016 FINDINGS: Mild dependent subsegmental bibasilar atelectasis. There is no pneumatosis or pneumoperitoneum. The cardiac chambers appear unremarkable. Coronary arterial calcifications are noted. Mildly contracted gallbladder. Spleen, liver, pancreas and adrenal glands appear unremarkable. There are no renal or ureteral calculi or obstructive uropathy identified. 8 mm cyst of the inferior pole right kidney. Urinary bladder and uterus appear unremarkable. Moderate mixed plaque formation of the aorta without aneurysm. No adenopathy by CT size criteria. No bowel obstruction. Mild nonspecific peritoneal thickening adjacent to the proximal sigmoid colon. Colonic diverticulosis without acute diverticulitis. T erminal ileum is fluid-filled. 6 mm appendicolith noted about the proximal appendiceal lumen. The appendix is dilated and fluid-filled measuring up to 11 mm transversely. Mild periappendiceal inflammatory stranding with trace free fluid. No evidence of perforation or drainable fluid collection. Bilateral saline breast implants. Soft tissues are otherwise unremarkable. The bones appear to be intact. Degenerative changes of the spine, pelvis and hips. IMPRESSION: 1. Findings compatible with acute uncomplicated appendicitis with obstructing appendicolith. No evidence of perforation or drainable fluid collection. 2. No bowel obstruction. 3. Colonic diverticulosis without acute diverticulitis. 4. Additional findings as above. Electronically signed by: Jr Cavazos M.D. 05/31/2019 3:58 PM Dictated: 05/31/19 1548 Transcribed: 05/31/19 1548 PG Care Time/CCT Total # of Minutes Spent Total Time Spent with Patient: Total time spent is greater than 50% in coordination of care (as documented) at patient's floor/unit and/or counseling patient: (1) Acute appendicitis Acute appendicitis type: unspecified acute appendicitis type Qualified Code(s): K35.80 - Unspecified acute appendicitis (2) Hypertension Hypertension type: essential hypertension Qualified Code(s): I10 - Essential (primary) hypertension (3) Hypothyroid Hypothyroidism type: unspecified Qualified Code(s): E03.9 - Hypothyroidism, unspecified
--- NOTE | 2019-05-31 22:55 | Emergency Department Note ---
Entered by Genevieve Beltran acting as a scribe for Joseph Cruz MD History of Present Illness General Chief complaint: Abdominal Pain Stated complaint: ABD PAIN Time Seen by Provider: 05/31/19 14:45 Source: patient History of Present Illness Onset (ago): hour(s) (7.5) Location: abdomen (left lower ) Radiation: non-radiation Pain Consistency: + other (worsening ) Maximum Pain Intensity: 8 Current Pain Intensity: 8 Relieved By: + other (walking) Associated symptoms: + fever/chills (positive chills; negative fever), + nausea/vomiting (positive nausea; negative vomiting ) and + other (negative urinary symptoms; negative diarrhea; negative problems with bowel movements) Treatments prior to arrival: none The patient is a 73 year old female who presents to the Emergency Room with complaints of worsening left lower abdominal pain that began at about 0730 this morning, about 7.5 hours prior to arrival. The patient rates her pain at an 8/10, and denies radiation of her pain. She states that walking has relieved her pain. The patient states that she has been nauseous during this time, but denies vomiting. She reports feeling chills today, but denies a fever. The patient denies urinary symptoms, diarrhea, and problems with her bowel movements. She denies treatments prior to arrival. The patient denies a history of kidney s tones. Home Medications Home Medications Medication Instructions Recorded Confirmed Type amitriptyline 25 mg PO HS 05/31/19 05/31/19 History aspirin 81 mg PO HS 05/31/19 05/31/19 History calcium carbonate-vitamin D3 1 cap PO QDL 05/31/19 05/31/19 History [Calcium 600 + D(3)] cannabidiol (CBD) extract 10 mg PO HS 05/31/19 05/31/19 History cannabidiol (CBD) extract 25 mg PO QDL 05/31/19 05/31/19 History coenzyme Q10 [CoQ-10] 100 mg PO QDL 05/31/19 05/31/19 History levothyroxine 112 mcg PO QAM 05/31/19 05/31/19 History losartan 100 mg PO QAM 05/31/19 05/31/19 History metoprolol succinate 75 mg PO HS 05/31/19 05/31/19 History omega 4-dxk-efp-fish oil [[place]-3] 1 cap PO QDL 05/31/19 05/31/19 History pravastatin 20 mg PO HS 05/31/19 05/31/19 History tramadol 50 mg PO Q12 05/31/19 05/31/19 History Allergies Allergy/AdvReac Type Severity Reaction Status Date / Time vitamin E (d-alpha Allergy Mild RASH WITH Verified 05/31/19 14:43 tocopherol) OIL adhesive Allergy Unknown RASH AND Verified 05/31/19 14:43 BLISTERING WITH STERISTRIPES/DERMABOND BLISTERS codeine AdvReac Unknown NAUSEA AND Verified 05/31/19 14:43 VOMITING Past Med/Surg History Medical History Fibromyalgia High cholesterol Hypertension Hypothyroid Surgical History H/O laparoscopy History of knee surgery History of rotator cuff surgery Family History Other Coronary heart disease Social History Preferred Language: Khmer Communication Ability: Effective Certified Professional Midwife Required: No Beliefs That Will Affect Care: None Current Living Situation: Spouse Other Information That Helps Us Care for You: No Feels Safe at Home: Yes Safety Concerns: Feels Safe At This Time Smoking Status: Former smoker Do You Dip or Chew Tobacco: No Second Hand Ex posure: No Tobacco Cessation Education Requested by Patient: No Hx Alcohol Use: Yes Alcohol type: wine Hx Substance Use: No Review of Systems See HPI for pertinent positives & negatives. and A total of 10 systems reviewed and were otherwise negative Physical Exam Vital Signs Vital Signs - 24 hr 05/31/19 14:24 05/31/19 15:06 05/31/19 15:53 Temperature 37 C Temperature Source Oral Sepsis Recent Fever Within 48 Hours No Sepsis New/Unexplained Change in Mental Status No Sepsis Action Taken by Nursing No Action Required Pulse Rate 70 Pulse Rate [Finger] 59 L 85 Pulse Rhythm [Finger] Pulse Strength [Finger] Respiratory Rate 17 20 18 Respiratory Effort / Characteristics Non-Labored Respiratory Depth Normal Respiratory Pattern Blood Pressure 153/83 H Blood Pressure [Right Arm] 171/66 H 150/61 H Blood Pressure Mean 106 Blood Pressure Mean [Right Arm] 101 90 Blood Pressure Position Sitting Blood Pressure Position [Right Arm] Pulse Oximetry 98 97 99 Oxygen Delivery Method Room Air Room Air Room Air 05/31/19 16:54 05/31/19 16:58 05/31/19 17:26 Temperature 36.7 C Temperature Source Oral Sepsis Recent Fever Within 48 Hours Sepsis New/Unexplained Change in Mental Status Sepsis Action Taken by Nursing Pulse Rate Pulse Rate [Finger] 80 81 Pulse Rhythm [Finger] Regular Pulse Strength [Finger] Normal Respiratory Rate 14 14 18 Respiratory Effort / Characteristics Non-Labored Respiratory Depth Normal Respiratory Pattern Regular Blood Pressure Blood Pressure [Right Arm] 172/78 H 182/72 H Blood Pressure Mean Blood Pressure Mean [Right Arm] 109 108 Blood Pressure Position Blood Pressure Position [Right Arm] Semi-fowlers Pulse Oximetry 99 99 98 Oxygen Delivery Method Room Air Room Air Room Air GENERAL: Patient is in no acute distress. HEENT: No acute trauma, normocephalic atraumatic, mucous membranes moist, no nasal congestion, no scleral icterus. NECK: No stridor, no adenopathy, no meningismus, trachea is midline. LUNGS: Clear to auscultation bilaterally, no wheeze, no rhonchi, breath sounds equal. HEART: Subtle systolic murmur. Regular rate and rhythm. ABDOMEN: Soft, tender to both lower quadrants primarily the left, bowel sounds positive, no hernias, no peritonitis. EXTREMITIES: No cyanosis or edema, full range of motion of all the joints without pain or difficulty, no signs for acute trauma. NEUROLOGIC: Oriented x 3, no acute motor or sensory deficits, no focal weakness. SKIN: No rash, no jaundice, no diaphoresis. Course 1447: Past medical records reviewed. The patient was evaluated in room A12B. A complete history and physical exam was performed. 1621: I discussed the case with Dr. Victoriano Grewal PA-C who will further evaluate the patient. 1623: I updated the patient on all results. She is aware and in agreement with the treatment plan. Consultations Consultation #1: I discussed the case with Dr. Victoriano Grewal PA-C who will further evaluate the patient. Time: 16:21 Administered Medications Amitriptyline HCl (Elavil) 25 mg PO HS TAMMI Stop: 06/30/19 20:59 Last Admin: 05/31/19 21:16 Dose: 25 mg Documented by: [id number] Docusate Sodium (Colace) 100 mg PO BID PRN PRN Reason: Constipation Stop: 06/30/19 21:29 Last Admin: 05/31/19 21:39 Dose: 100 mg Documented by: [id number] Cefoxitin Sodium 1,000 mg/ (Dextrose) 60 mls @ 100 mls/hr IV Q6H [facility] Stop: 06/11/19 00:00 Last Infusion: 06/01/19 13:07 Dose: 0 mls/hr Documented by: [id number] Admin: 06/01/19 12:07 Dose: 100 mls/hr Documented by: [id number] Infusion: 06/01/19 06:46 Dose: 0 mls/hr Documented by: [id number] Admin: 06/01/19 06:11 Dose: 100 mls/hr Documented by: [id number] Infusion: 06/01/19 01:15 Dose: 0 mls/hr Documented by: [id number] Admin: 06/01/19 00:37 Dose: 100 mls/hr Documented by: [id number] Sodium Chloride (Nss 1000ml) 1,000 mls @ 50 mls/hr IV .Q20H [facility] Stop: 06/30/19 18:44 Last Infusion: 06/01/19 06:46 Dose: 50 mls/hr Documented by: [id number] Admin: 05/31/19 22:26 Dose: 50 mls/hr Documented by: [id number] Ioversol (Optiray 320 100ml) 88 ml IV ONCE PRN PRN Reason: Interaction Checking Stop: 06/04/19 15:42 Last Admin: 05/31/19 15:44 Dose: 88 ml Documented by: [id number] Levothyroxine Sodium (Synthroid) 112 mcg PO DAILYBB [facility] Stop: 07/01/19 06:29 Last Admin: 06/01/19 05:52 Dose: 112 mcg Documented by: [id number] Losartan Potassium (Cozaar) 100 mg PO QAM [facility] Stop: 07/01/19 08:59 Last Admin: 06/01/19 08:58 Dose: 100 mg Documented by: [id number] Magnesium Hydroxide (Milk Of Magnesia) 30 ml PO BID [facility] Stop: 07/01/19 08:59 Last Admin: 06/01/19 08:59 Dose: 30 ml Documented by: [id number] Metoprolol Succinate (Toprol Xl) 75 mg PO HS [facility] Stop: 06/30/19 20:59 Last Admin: 05/31/19 21:16 Dose: 75 mg Documented by: [id number] Pravastatin Sodium (Pravachol) 20 mg PO HS [facility] Stop: 06/30/19 20:59 Last Admin: 05/31/19 21:16 Dose: 20 mg Documented by: [id number] Senna/Docusate Sodium (Senokot S) 1 tab PO BID T[facility]MI Stop: 07/01/19 08:59 Last Admin: 06/01/19 08:58 Dose: 1 tab Documented by: [id number] Tramadol HCl (Ultram) 50 mg PO Q4H PRN PRN Reason: Pain Stop: 06/30/19 18:41 Last Admin: 06/01/19 11:48 Dose: 50 mg Documented by: [id number] Admin: 06/01/19 05:52 Dose: 50 mg Documented by: [id number] Admin: 05/31/19 21:36 Dose: 50 mg Documented by: [id number] Discontinued Medications Bupivacaine HCl (Marcaine 0.5% Mpf) Confirm Administered Dose 30 ml .ROUTE .STK- MED ONE Stop: 05/31/19 17:05 Last Admin: 05/31/19 18:31 Dose: 10 ml Documented by: [id number] Sodium Chloride (Nss) 500 mls @ 999 mls/hr IV .Q31M [facility] Stop: 05/31/19 15:30 Last Infusion: 05/31/19 15:48 Dose: 0 mls/hr Documented by: [id number] Admin: 05/31/19 15:04 Dose: 999 mls/hr Documented by: [id number] Cefoxitin Sodium (Mefoxin) 2,000 mg in 60 mls @ 100 mls/hr IV NOW STA Stop: 05/31/19 17:01 Last Infusion: 05/31/19 23:01 Dose: 0 mls/hr Documented by: [id number] Admin: 05/31/19 17:34 Dose: 100 mls/hr Documented by: [id number] Acetaminophen (Ofirmev) 1,000 mg in 100 mls @ 400 mls/hr IV NOW STA Stop: 05/31/19 18:53 Last Infusion: 05/31/19 23:01 Dose: 0 mls/hr Documented by: [id number] Admin: 05/31/19 18:58 Dose: 400 mls/hr Documented by: [id number] Ketorolac Tromethamine (Toradol) 15 mg IV NOW STA Stop: 05/31/19 14:54 Last Admin: 05/31/19 15:04 Dose: 15 mg Documented by: [id number] Ondansetron HCl (Zofran) 4 mg IV NOW STA Stop: 05/31/19 14:54 Last Admin: 05/31/19 15:05 Dose: 4 mg Documented by: [id number] Medical Decision Making Differential Diagnosis Differential diagnoses include diverticulitis, appendicitis, musculoskeletal pain, UTI, renal colic, hydronephrosis, hernia, pancreatitis, and others were considered. Medical Records Attestation: I reviewed the patient's medical records. Home Medications Current Medication List: was personally reviewed by me Laboratory Data Attestation: I reviewed the patient's lab results. Result diagrams: 06/01/19 05:32 06/01/19 05:32 Lab Results 05/31/19 05/31/19 05/31/19 Range/Units 14:45 14:45 15:05 WBC 11.83 H (4.8-10.8) K/uL RBC 3.96 L (4.2-5.4) M/uL Hgb 13.1 (12.0-16.0) g/dL Hct 38.3 (37-47) % MCV 96.7 (80-100) fL MCH 33.1 (25-34) pg MCHC 34.2 (32-36) g/dL RDW Std Deviation 50.0 H (36.4-46.3) fL RDW Coeff of Darryl 14.0 (11.5-14.5) % Plt Count 239 (130-400) K/uL MPV 10.2 (7.4-10.4) fL Immature Gran % (Auto) 0.3 % Neut % (Auto) 85.7 % Lymph % (Auto) 8.9 % [place] % (Auto) 4.7 % Eos % (Auto) 0.2 % Baso % (Auto) 0.2 % Immature Gran # (Auto) 0.03 H (0.00-0.02) K/uL Neut # (Auto) 10.15 H (1.4-6.5) K/uL Lymph # (Auto) 1.05 L (1.2-3.4) K/uL [place] # (Auto) 0.56 (0.11-0.59) K/uL Eos # (Auto) 0.02 (0-0.5) K/uL Baso # (Auto) 0.02 (0-0.2) K/uL Sodium 137 (136-145) mmol/L Potassium (3.5-5.1) mmol/L Chloride 103 (98-107) mmol/L Carbon Dioxide 25 (21-32) mmol/L Anion Gap 10.0 (3-11) BUN 14 (7-18) mg/dl Creatinine 0.83 (0.6-1.2) mg/dl Est Cr Clr Drug Dosing 59.7 ml/min Est GFR ( Amer) 80.5 Est GFR (Non-Af Amer) 69.5 BUN/Creatinine Ratio 16.8 (10-20) Glucose 115 H (70-99) mg/dl Calcium 9.5 (8.5-10.1) mg/dl Total Bilirubin 0.6 (0.2-1) mg/dl AST (15-37) U/L ALT 35 (12-78) U/L Alkaline Phosphatase 115 (45-117) U/L Total Protein 7.3 (6.4-8.2) gm/dl Albumin 3.6 (3.4-5.0) gm/dl Globulin 3.7 (2.5-4.0) gm/dl Albumin/Globulin Ratio 1.0 (0.9-2) Lipase 97 (73-393) U/L Urine Color Yellow Urine Appearance Cloudy A (Clear) Urine pH 7.5 (4.5-7.5) Ur Specific [place] 1.021 (1.000-1.030) Urine Protein Negative (Negative) Urine Glucose (UA) Negative (Negative) Urine Ketones Trace H (Negative) Urine Blood Negative (Negative) Urine Nitrite Negative (Negative) Urine Bilirubin Negative (Negative) Urine Urobilinogen Negative (Negative) Ur Leukocyte Esterase Negative (Negative) Urine WBC (Auto) 0 (0-5) /hpf Urine RBC (Auto) 0-4 (0-4) /hpf U Hyaline Cast (Auto) 0 (0-5) /lpf U Epithel Cells (Auto) 10-20 H (0-5) /lpf Urine Bacteria (Auto) Negative (Negative) 05/31/19 Range/Units 15:47 WBC (4.8-10.8) K/uL RBC (4.2-5.4) M/uL Hgb (12.0-16.0) g/dL Hct (37-47) % MCV (80-100) fL MCH (25-34) pg MCHC (32-36) g/dL RDW Std Deviation (36.4-46.3) fL RDW Coeff of Darryl (11.5-14.5) % Plt Count (130-400) K/uL MPV (7.4-10.4) fL Immature Gran % (Auto) % Neut % (Auto) % Lymph % (Auto) % [place] % (Auto) % Eos % (Auto) % Baso % (Auto) % Immature Gran # (Auto) (0.00-0.02) K/uL Neut # (Auto) (1.4-6.5) K/uL Lymph # (Auto) (1.2-3.4) K/uL [place] # (Auto) (0.11-0.59) K/uL Eos # (Auto) (0-0.5) K/uL Baso # (Auto) (0-0.2) K/uL Sodium (136-145) mmol/L Potassium 3.7 (3.5-5.1) mmol/L Chloride (98-107) mmol/L Carbon Dioxide (21-32) mmol/L Anion Gap (3-11) BUN (7-18) mg/dl Creatinine (0.6-1.2) mg/dl Est Cr Clr Drug Dosing ml/min Est GFR ( Amer) Est GFR (Non-Af Amer) BUN/Creatinine Ratio (10-20) Glucose (70-99) mg/dl Calcium (8.5-10.1) mg/dl Total Bilirubin (0.2-1) mg/dl AST 19 (15-37) U/L ALT (12-78) U/L Alkaline Phosphatase (45-117) U/L Total Protein (6.4-8.2) gm/dl Albumin (3.4-5.0) gm/dl Globulin (2.5-4.0) gm/dl Albumin/Globulin Ratio (0.9-2) Lipase (73-393) U/L Urine Color Urine Appearance (Clear) Urine pH (4.5-7.5) Ur Specific [place] (1.000-1.030) Urine Protein (Negative) Urine Glucose (UA) (Negative) Urine Ketones (Negative) Urine Blood (Negative) Urine Nitrite (Negative) Urine Bilirubin (Negative) Urine Urobilinogen (Negative) Ur Leukocyte Esterase (Negative) Urine WBC (Auto) (0-5) /hpf Urine RBC (Auto) (0-4) /hpf U Hyaline Cast (Auto) (0-5) /lpf U Epithel Cells (Auto) (0-5) /lpf Urine Bacteria (Auto) (Negative) Imaging Data Radiologist's Impression: Radiology results as stated below per my review and the radiologist's interpretation: ABDOMEN AND PELVIS CT WITH IV CONTRAST CT DOSE: 480.69 mGy.cm HISTORY: Acute left lower quadrant abdominal pain llq pain TECHNIQUE: Multiaxial CT images of the abdomen and pelvis were performed following the use of intravenous contrast. A dose lowering technique was utilized adhering to the principles of ALARA. COMPARISON STUDY: PET CT 01/11/2016 FINDINGS: Mild dependent subsegmental bibasilar atelectasis. There is no pneumatosis or pneumoperitoneum. The cardiac chambers appear unremarkable. Coronary arterial calcifications are noted. Mildly contracted gallbladder. Spleen, liver, pancreas and adrenal glands appear unremarkable. There are no renal or ureteral calculi or obstructive uropathy identified. 8 mm cyst of the inferior pole right kidney. Urinary bladder and uterus appear unremarkable. Moderate mixed plaque formation of the aorta without aneurysm. No adenopathy by CT size criteria. No bowel obstruction. Mild nonspecific peritoneal thickening adjacent to the proximal sigmoid colon. Colonic diverticulosis without acute diverticulitis. Terminal ileum is fluid-filled. 6 mm appendicolith noted about the proximal appendiceal lumen. The appendix is dilated and fluid-filled measuring up to 11 mm transversely. Mild periappendiceal inflammatory stranding with trace free fluid. No evidence of perforation or drainable fluid collection. Bilateral saline breast implants. Soft tissues are otherwise unremarkable. The bones appear to be intact. Degenerative changes of the spine, pelvis and hips. IMPRESSION: 1. Findings compatible with acute uncomplicated appendicitis with obstructing appendicolith. No evidence of perforation or drainable fluid collection. 2. No bowel obstruction. 3. Colonic diverticulosis without acute diverticulitis. 4. Additional findings as above. Electronically signed by: Jr Cavazos M.D. 05/31/2019 3:58 PM Blood Pressure Blood Pressure Findings: Elevated blood pressure Additional Comments: further management by surgeon. MDM Narrative There is a slight leukocytosis, this certainly could be consistent with infection. No concerning anemia. No significant electrolyte abnormality, kidney failure or hepatitis. No evidence for pancreatitis. Urinalysis does not show infection or hematuria. Abdominal and pelvis CT shows evidence for early appendicitis. No bowel obstruction. No abscess. On exam, the patient was tender in both lower quadrants but mostly on the left. She did not have peritonitis. The patient received IV Toradol, IV Zofran, IV saline. She is currently fairly comfortable. I talked with her and her significant other about the findings. I spoke with the shoe caser. Surgery was consulted. The patient was seen by general surgery here in the ED, she will be undergoing an appendectomy. Impression & Plan Acute appendicitis, Lower abdominal pain Discharge Plan Visit Data *Final* Discharge Date/Time: 05/31/19 16:58 Chief Complaint: Abdominal Pain Stated Complaint: ABD PAIN ED Provider: Joseph Cruz Discharge Problem: Acute appendicitis, Lower abdominal pain Patient Disposition: Still a Patient Discharge Instructions Interventions: ED Discharge Assessment Last Done: 05/31/19 16:58 Discharge Problem: Acute appendicitis Qualifiers: Acute appendicitis type: unspecified acute appendicitis type Qualified Code(s): K35.80 - Unspecified acute appendicitis The scribe's documentation has been prepared under my direction and personally reviewed by me in its entirety. I confirm that the note above accurately reflects all work, treatment, procedures, and medical decision making performed by me.
--- NOTE | 2019-06-01 01:39 | Operative Report ---
DATE OF OPERATION: 05/31/2019 NAME OF OPERATION: Laparoscopic appendectomy. PREOPERATIVE DIAGNOSIS: Appendicitis. POSTOPERATIVE DIAGNOSIS: Appendicitis. STAFF SURGEON: Dr. Sigala. ANESTHESIA: General. DESCRIPTION OF PROCEDURE: The patient was brought in the Operating Room and placed on the operating table in supine position. Her abdomen was prepped and draped in usual fashion. Orogastric tube was placed. A 0.5% plain Marcaine was used to anesthetize all incisions. Incision was made above the umbilicus, carrying dissection down to the fascia, placing a Veress needle producing pneumoperitoneum. An 11 mm port was placed at this level and then under visualization, a 12 mm port placed in left lower quadrant and 5 mm port placed suprapubically. The appendix was grasped and retracted. It was very friable and inflamed. The mesoappendix was clipped using 1 cm clips. The base of the appendix was transected using an Endo-REJI stapler. After appropriate hemostasis and irrigation, the appendix was placed in an Endobag and removed through the left lower quadrant port site. All ports were then removed. The 12 mm site and 11 mm site closed using interrupted 0 Vicryl suture for the fascia. Skin then reapproximated using 5-0 Prolene suture for all incisions. Dressings applied and the patient transferred to Recovery Room in stable condition. I attest to the content of the Intraoperative Record and any orders documented therein. Any exception s are noted below.
[2019-06-01] MEDS: LEVOTHYROXINE SODIUM 112 MCG TABLET PO SCH (05:52)
[2019-06-01] MEDS: TRAMADOL HCL 50 MG TABLET PO PRN ×4 (05:52→20:27)
[2019-06-01 06:24] LABS: Hematocrit (blood only) 35.2 % (37-47); Hemoglobin 12.2 g/dL (12.0-16.0); Immature Granulocytes # (auto) 0.03 K/uL (0.00-0.02); Immature Granulocytes % (auto) 0.3 %; Lymphocytes # (auto) 0.96 K/uL (1.2-3.4); Lymphocytes % (auto) 8.3 %; Mean Corpuscular Hgb Conc 34.7 g/dL (32-36); Mean Platelet Volume 10.2 fL (7.4-10.4); Monocytes # (auto) 0.53 K/uL (0.11-0.59); Monocytes % (auto) 4.6 %; Neutrophils # (auto) 10.02 K/uL (1.4-6.5); Neutrophils % (auto) 86.8 %; Platelet Count 242 K/uL (130-400); RDW Coefficient of Variation 14.2 % (11.5-14.5); RDW Standard Deviation 50.7 fL (36.4-46.3); Red Blood Count 3.63 M/uL (4.2-5.4); White Blood Count 11.54 K/uL (4.8-10.8)
--- NOTE | 2019-06-01 06:47 | Progress Note ---
Date of Service June 01, 2019 Assessment & Plan (1) Acute appendicitis: doing ok- some mild pain abd- mild distention- cont IV atbx mobilize, check labs Acute appendicitis type: unspecified acute appendicitis type Qualified Code(s): K35.80 - Unspecified acute appendicitis Subjective see a/p Results & Data Vital Signs (Past 12 Hours) Vital Signs Temp Pulse Pulse Resp BP BP Pulse Ox 06/01/19 04:10 36.5 C 71 16 119/67 94 05/31/19 22:37 36.9 C 61 16 120/66 94 05/31/19 21:35 36.8 C 61 16 139/63 95 05/31/19 21:16 64 05/31/19 20:35 36.5 C 55 L 17 133/75 99 05/31/19 20:02 36.3 C L 51 L 16 134/65 100 05/31/19 19:35 37.1 C 55 L 16 129/66 100 05/31/19 19:30 36.6 C 54 L 17 126/55 L 100 05/31/19 19:20 36.6 C 53 L 16 128/53 L 100 05/31/19 19:10 36.4 C L 64 18 111/54 L 100 05/31/19 19:00 36.4 C L 61 14 132/55 L 100 05/31/19 18:52 36.4 C L 70 16 132/51 L 98
[2019-06-01 07:02] LABS: BUN Creatinine Ratio 14.7 (10-20); Calcium 8.5 mg/dl (8.5-10.1); Creatinine Clr Calc Pharmacy 57.7 ml/min; Est GFR (African American) 77.1; Est GFR (Non-African American) 66.6; Potassium 4.4 mmol/L (3.5-5.1)
[2019-06-01 07:09] LABS: Albumin Globulin Ratio 0.9 (0.9-2); Bilirubin,Total 0.6 mg/dl (0.2-1); Globulin 3.4 gm/dl (2.5-4.0); Phosphorus 4.7 mg/dl (2.5-4.9); Total Protein 6.4 gm/dl (6.4-8.2)
[2019-06-01] MEDS: DOCUSATE SODIUM/SENNA 50/8.6MG TAB PO SCH ×2 (08:58→20:20)
[2019-06-01] MEDS: LOSARTAN POTASSIUM 50 MG TAB PO SCH (08:58)
[2019-06-01] MEDS: MAGNESIUM HYDROXIDE SUSP 30 ML UDC PO SCH ×2 (08:59→20:21)
--- NOTE | 2019-06-01 10:10 | Anesthesiology Progress Note ---
Date of Service June 01, 2019 Anesthesia Post Procedure Vital Signs Vital Signs: Temp Pulse Pulse Pulse Resp BP BP 06/01/19 07:30 36.9 C 69 18 06/01/19 04:10 36.5 C 71 16 119/67 05/31/19 22:37 36.9 C 61 16 05/31/19 21:35 36.8 C 61 16 05/31/19 21:16 64 05/31/19 20:35 36.5 C 55 L 17 05/31/19 20:02 36.3 C L 51 L 16 05/31/19 19:35 37.1 C 55 L 16 05/31/19 19:30 36.6 C 54 L 17 05/31/19 19:20 36.6 C 53 L 16 05/31/19 19:10 36.4 C L 64 18 05/31/19 19:00 36.4 C L 61 14 05/31/19 18:52 36.4 C L 70 16 05/31/19 17:26 36.7 C 81 18 05/31/19 16:58 14 05/31/19 16:54 80 14 05/31/19 15:53 85 18 05/31/19 15:06 59 L 20 05/31/19 14:24 37 C 70 17 153/83 H BP Pulse Ox 06/01/19 07:30 139/69 96 06/01/19 04:10 94 05/31/19 22:37 120/66 94 05/31/19 21:35 139/63 95 05/31/19 21:16 05/31/19 20:35 133/75 99 05/31/19 20:02 134/65 100 05/31/19 19:35 129/66 100 05/31/19 19:30 126/55 L 100 05/31/19 19:20 128/53 L 100 05/31/19 19:10 111/54 L 100 05/31/19 19:00 132/55 L 100 05/31/19 18:52 132/51 L 98 05/31/19 17:26 182/72 H 98 05/31/19 16:58 99 05/31/19 16:54 172/78 H 99 05/31/19 15:53 150/61 H 99 05/31/19 15:06 171/66 H 97 05/31/19 14:24 98 Pain Intensity Left Abdomen: Pain Intensity: 5 Transfer of Care Handoff Completed per policy Notes Mental Status: alert / awake / arousable and participated in evaluation Patient Amnestic to Procedure: Yes Nausea / Vomiting: adequately controlled Pain: adequately controlled Airway Patency, RR, SpO2: stable & adequate BP & HR: stable & adequate Hydration State: stable & adequate Anesthetic Complications: no major complications apparent and Pt Satisfied with anesthetic care
--- NOTE | 2019-06-01 11:44 | Hospitalist Progress Note ---
Date of Service June 01, 2019 Assessment & Plan (1) Acute appendicitis: - S/p laparoscopic appendectomy on 05/31/19, POD#1. - Pain control per primary team. - Continue bowel regimen. - DVT ppx per surgery team -- currently holding home ASA. (2) Hypertension: - Continue Metoprolol and Losartan as prescribed. (3) Dyslipidemia: - Continue Pravastatin 20mg po qhs. - Coenzyme Q10 and fish oil to be resumed at discharge. (4) Hypothyroid: - Continue Synthroid 112mcg daily - Most recent TSH was 2.3 in January 2019. (5) Fibromyalgia: - Well controlled with CBD oil. Can continue as inpatient. Dispo: Medically stable, will sign off. Please call with any questions. Supervising Physician Co-Signing Physician Notes PA Supervision Note: I did not personally see or examine the patient today, but I verified all dumont points of HALEY Peck's assessment and plan with the following exceptions/additions: Review of CT abd/pel shows some nonspecific peritoneal thickening at the proximal sigmoid colon region-unclear of the significance of this but should be followed by PCP--> perhaps needs repeat imaging and/or colonoscopy or pelvic US in near future. Subjective Pt is doing well overall. Complains of abd pain, rated as a 5/10. Denies N/V. Is passing gas, no BM yet. Review of Systems Review of Systems: All systems reviewed & are unremarkable except as noted in HPI & below Constitutional: no fever, no chills, no fatigue, no weakness and no anorexia Respiratory: no cough, no dyspnea and no dyspnea on exertion Cardiovascular: no chest pain, no palpitations and no edema Gastrointestinal: + abdominal pain and + constipation; no nausea, no vomiting and no diarrhea/loose stools Genitourinary: no difficulty urinating Musculoskeletal: no back pain and no joint pain Integumentary: no non-healing lesions Allergy / Immunological: no rash Physical Exam Physical Exam: General: Resting comfortably in no apparent distress HEENT: NC/AT; PERRLA with EOMI; [place] conjunctiva, MMM. No erythema of posterior pharynx Neck: Supple and nontender Cardiac: RRR Lungs: CTA bilaterally Abdomen: Incision sites with dressing in place, no drainage noted; Bowel normoactive X 4; Nontender to palpation Extremities: Warm. No edema present Neuro: No focal weakness Skin: No rash Results & Data Vital Signs (Past 12 Hours) Vital Signs Temp Pulse Resp BP BP Pulse Ox 06/01/19 07:30 36.9 C 69 18 139/69 96 06/01/19 04:10 36.5 C 71 16 119/67 94 Laboratory Results 06/01/19 06/01/19 05/31/19 Range/Units 05:32 05:32 15:47 WBC 11.54 H (4.8-10.8) K/uL RBC 3.63 L (4.2-5.4) M/uL Hgb 12.2 (12.0-16.0) g/dL Hct 35.2 L (37-47) % MCV 97.0 (80-100) fL MCH 33.6 (25-34) pg MCHC 34.7 (32-36) g/dL RDW Std Deviation 50.7 H (36.4-46.3) fL RDW Coeff of Darryl 14.2 (11.5-14.5) % Plt Count 242 (130-400) K/uL MPV 10.2 (7.4-10.4) fL Immature Gran % (Auto) 0.3 % Neut % (Auto) 86.8 % Lymph % (Auto) 8.3 % [place] % (Auto) 4.6 % Eos % (Auto) 0.0 % Baso % (Auto) 0.0 % Immature Gran # (Auto) 0.03 H (0.00-0.02) K/uL Neut # (Auto) 10.02 H (1.4-6.5) K/uL Lymph # (Auto) 0.96 L (1.2-3.4) K/uL [place] # (Auto) 0.53 (0.11-0.59) K/uL Eos # (Auto) 0.00 (0-0.5) K/uL Baso # (Auto) 0.00 (0-0.2) K/uL Sodium 140 (136-145) mmol/L Potassium 4.4 D 3.7 (3.5-5.1) mmol/L Chloride 105 (98-107) mmol/L Carbon Dioxide 27 (21-32) mmol/L Anion Gap 7.0 (3-11) BUN 13 (7-18) mg/dl Creatinine 0.86 (0.6-1.2) mg/dl Est Cr Clr Drug Dosing 57.7 ml/min Est GFR ( Amer) 77.1 Est GFR (Non-Af Amer) 66.6 BUN/Creatinine Ratio 14.7 (10-20) Glucose 121 H (70-99) mg/dl Calcium 8.5 (8.5-10.1) mg/dl Phosphorus 4.7 (2.5-4.9) mg/dl Total Bilirubin 0.6 (0.2-1) mg/dl AST 13 L 19 (15-37) U/L ALT 26 (12-78) U/L Alkaline Phosphatase 100 (45-117) U/L Total Protein 6.4 (6.4-8.2) gm/dl Albumin 3.0 L (3.4-5.0) gm/dl Globulin 3.4 (2.5-4.0) gm/dl Albumin/Globulin Ratio 0.9 (0.9-2) Lipase (73-393) U/L Urine Color Urine Appearance (Clear) Urine pH (4.5-7.5) Ur Specific [place] (1.000-1.030) Urine Protein (Negative) Urine Glucose (UA) (Negative) Urine Ketones (Negative) Urine Blood (Negative) Urine Nitrite (Negative) Urine Bilirubin (Negative) Urine Urobilinogen (Negative) Ur Leukocyte Esterase (Negative) Urine WBC (Auto) (0-5) /hpf Urine RBC (Auto) (0-4) /hpf U Hyaline Cast (Auto) (0-5) /lpf U Epithel Cells (Auto) (0-5) /lpf Urine Bacteria (Auto) (Negative) 05/31/19 05/31/19 05/31/19 Range/Units 15:05 14:45 14:45 WBC 11.83 H (4.8-10.8) K/uL RBC 3.96 L (4.2-5.4) M/uL Hgb 13.1 (12.0-16.0) g/dL Hct 38.3 (37-47) % MCV 96.7 (80-100) fL MCH 33.1 (25-34) pg MCHC 34.2 (32-36) g/dL RDW Std Deviation 50.0 H (36.4-46.3) fL RDW Coeff of Darryl 14.0 (11.5-14.5) % Plt Count 239 (130-400) K/uL MPV 10.2 (7.4-10.4) fL Immature Gran % (Auto) 0.3 % Neut % (Auto) 85.7 % Lymph % (Auto) 8.9 % [place] % (Auto) 4.7 % Eos % (Auto) 0.2 % Baso % (Auto) 0.2 % Immature Gran # (Auto) 0.03 H (0.00-0.02) K/uL Neut # (Auto) 10.15 H (1.4-6.5) K/uL Lymph # (Auto) 1.05 L (1.2-3.4) K/uL [place] # (Auto) 0.56 (0.11-0.59) K/uL Eos # (Auto) 0.02 (0-0.5) K/uL Baso # (Auto) 0.02 (0-0.2) K/uL Sodium 137 (136-145) mmol/L Potassium (3.5-5.1) mmol/L Chloride 103 (98-107) mmol/L Carbon Dioxide 25 (21-32) mmol/L Anion Gap 10.0 (3-11) BUN 14 (7-18) mg/dl Creatinine 0.83 (0.6-1.2) mg/dl Est Cr Clr Drug Dosing 59.7 ml/min Est GFR ( Amer) 80.5 Est GFR (Non-Af Amer) 69.5 BUN/Creatinine Ratio 16.8 (10-20) Glucose 115 H (70-99) mg/dl Calcium 9.5 (8.5-10.1) mg/dl Phosphorus (2.5-4.9) mg/dl Total Bilirubin 0.6 (0.2-1) mg/dl AST (15-37) U/L ALT 35 (12-78) U/L Alkaline Phosphatase 115 (45-117) U/L Total Protein 7.3 (6.4-8.2) gm/dl Albumin 3.6 (3.4-5.0) gm/dl Globulin 3.7 (2.5-4.0) gm/dl Albumin/Globulin Ratio 1.0 (0.9-2) Lipase 97 (73-393) U/L Urine Color Yellow Urine Appearance Cloudy A (Clear) Urine pH 7.5 (4.5-7.5) Ur Specific [place] 1.021 (1.000-1.030) Urine Protein Negative (Negative) Urine Glucose (UA) Negative (Negative) Urine Ketones Trace H (Negative) Urine Blood Negative (Negative) Urine Nitrite Negative (Negative) Urine Bilirubin Negative (Negative) Urine Urobilinogen Negative (Negative) Ur Leukocyte Esterase Negative (Negative) Urine WBC (Auto) 0 (0-5) /hpf Urine RBC (Auto) 0-4 (0-4) /hpf U Hyaline Cast (Auto) 0 (0-5) /lpf U Epithel Cells (Auto) 10-20 H (0-5) /lpf Urine Bacteria (Auto) Negative (Negative) PG Care Time/CCT Total # of Minutes Spent Total Time Spent with Patient: Total time spent is greater than 50% in coordination of care (as documented) at patient's floor/unit and/or counseling patient: (1) Hypothyroid Hypothyroidism type: unspecified Qualified Code(s): E03.9 - Hypothyroidism, unspecified (2) Hypertension Hypertension type: essential hypertension Qualified Code(s): I10 - Essential (primary) hypertension (3) Acute appendicitis Acute appendicitis type: unspecified acute appendicitis type Qualified Code(s): K35.80 - Unspecified acute appendicitis
[2019-06-01] MEDS: PRAVASTATIN SOD 20 MG TAB PO SCH (20:21)
[2019-06-01] MEDS: METOPROLOL SUCC 25MG EXT REL TAB PO SCH (20:22)
[2019-06-01] MEDS: AMITRIPTYLINE HCL 25 MG TAB PO SCH (20:22)
[2019-06-01] MEDS: SODIUM CHLORIDE 0.9% 1000ML 1,000 ML IV SCH (21:24)
[2019-06-02] MEDS: LEVOTHYROXINE SODIUM 112 MCG TABLET PO SCH (06:01)
--- NOTE | 2019-06-02 07:32 | Discharge Summary ---
PRINCIPAL DIAGNOSIS: Appendicitis. PROCEDURES: The patient underwent laparoscopic appendectomy. HISTORY OF PRESENT ILLNESS AND HOSPITAL COURSE: The patient is a 73-year-old female presenting to the Emergency Room with acute appendicitis. She was taken to the operating room on 05/31/2019, where she underwent laparoscopic appendectomy. She tolerated it well. She had done well on IV antibiotics and is felt stable for discharge home today to be followed in the surgical clinic this week.
[2019-06-02] MEDS: LOSARTAN POTASSIUM 50 MG TAB PO SCH (08:36)
[2019-06-02] MEDS: DOCUSATE SODIUM/SENNA 50/8.6MG TAB PO SCH (08:37)
[2019-06-02] MEDS: MAGNESIUM HYDROXIDE SUSP 30 ML UDC PO SCH (08:37)
== END 2019-06-02 11:06 | disposition home or self-care (01) | DRG 343 ==
LOC: ED 14:20 → ASU 16:55 → 3N 18:39
DX: Z88.5 Allergy status to narcotic agent; K35.80 Unspecified acute appendicitis; M79.7 Fibromyalgia; Z82.49 Family history of ischemic heart disease and other diseases of the circulatory system; E78.5 Hyperlipidemia, unspecified; Z87.891 Personal history of nicotine dependence; I10 Essential (primary) hypertension; Z79.82 Long term (current) use of aspirin; E03.9 Hypothyroidism, unspecified

== ENCOUNTER 2025-06-25 08:17 | Observation (INO) ==
--- NOTE | 2025-06-25 12:04 | Pre Anesthesia Assessment ---
Date of Service June 25, 2025 Pre Sedation Assessment Vital Signs Pulse Resp BP Pulse Ox O2 Del Method 06/25/25 08:39 71 16 167/77 H 97 Room Air Cardiovascular + regular rate Respiratory + respiratory effort normal Pre-Sedation Airway Assessment Smoking Status: Former smoker Hx Sleep Apnea: No Hx Difficult Intubation: No Short, Thick Neck: No Thyromental Distance: > or= 3.5 Finger Breadths Oral Cavity: + WNL Mallampati Class: III ASA: ASA3 NPO Status Date of Last Intake of Fluids: 06/24/25 Time of Last Intake of Fluids: 21:00 Date of Last Intake of Solid Food: 06/24/25 Time of Last Intake of Solid Foods: 21:00 Procedure Planning Contraindications for Sedation: none Current Medications Reviewed: Yes Notes The planned sedation has been discussed with the patient. Informed Consent was obtained. I have identified the patient, determined the appropriateness of sedation and have assessed the patient immediately prior to the procedure. All medicine(s) and interventions are by my order.
--- NOTE | 2025-06-25 12:04 | History & Physical Bridge Note ---
Date of Service June 25, 2025 History & Physical Bridge Note I have examined the patient, reviewed the History & Physical and in the interval since the performance of the History & Physical I have noted the following changes of clinical significance: no changes noted
[2025-06-25 14:59] LABS: iSTAT Art Bld Gas Base Excess 0.0 meg/L (-9-1.8); iSTAT Art Bld Gas Base Excess 2.0 meg/L (-9-1.8)
[2025-06-25] MEDS: HEPARIN (PORCINE) 1000 UNIT/ML 10 ML (CATH LAB USE ONLY) ONE ×2 (15:29→15:30)
[2025-06-25] MEDS: OPTIRAY 350 ONE (15:29)
[2025-06-25] MEDS: MIDAZOLAM HCL 1 MG/ML 2ML VIAL ONE ×2 (15:29→15:30)
[2025-06-25] MEDS: IODIXANOL (VISIPAQUE) 320 MG/ML 100ML IV ONE (15:29)
[2025-06-25] MEDS: NITROGLYCERIN/D5W 100MCG/ML 20ML SYR ONE (15:30)
[2025-06-25] MEDS: niCARdipine 2,000 MCG/20 ML SYR ONE (15:30)
--- NOTE | 2025-06-25 15:35 | Post Anesthesia Assessment ---
Date of Service June 25, 2025 Post Sedation Assessment Vital Signs Pulse Resp BP Pulse Ox O2 Del Method 06/25/25 08:39 71 16 167/77 H 97 Room Air Recovery Score Activity: Moves 4 extremities Respiration: Deep Breath/Cough Circulation: +/-20% PreAnes Value Consciousness: Fully Awake Oxygen Saturation: O2 needed for >90% Discharge Sedation Level of Care: Fast Track Phase II Post Sedation Plan On clinical assessment, the patient appears to have tolerated the sedation without complications. Patient is recovering as anticipated. Patient will continue to be monitored by nursing and may be discharged when sedation discharge criteria are met per below protocol. Upon Completions of procedure up to 15 minutes continue every 5 minute vital signs and the P.A.R. score; then discharge to a Phase I or Fast Track to Phase II per the following guidelines: * Discharge Patient to appropriate Phase II area if PAR is 8 or greater or return to pre- procedure baseline. The post - procedure orders will be as directed. * If PAR score is less than 8 or not return to pre-procedure baseline then patient will follow Phase I monitoring till PAR is reached for Phase II. The Phase I may be done in procedure room or may call to secure a Phase I area. * If naloxone or flumazenil are used for reversal, hold in Phase I for continued monitoring from when last reversal dose was given for a minimum of 60 minutes or longer pending the nurse and/or physician discretion of patient condition before discharge to Phase II. Please call the Sedation Physician to re-evaluate and complete post-note for discharge to Phase II area. Do NOT discharge from procedure sedation or Phase 1 until post- sedation evaluation note is complete by procedure /sedation MD Sedation Discharge Instructions to be given to the patient at discharge to home.
[2025-06-25] MEDS: CLOPIDOGREL BISULFATE 300 MG TAB ONE (15:38)
[2025-06-25] MEDS ORDERED: ONDANSETRON INJ 2 MG/ML 2 ML VIAL IV PRN (15:50)
[2025-06-25] MEDS ORDERED: CeleBREX 200 MG CAP PO PRN (18:40)
[2025-06-25] MEDS: AMITRIPTYLINE HCL 25 MG TAB PO PRN (20:49)
[2025-06-25] MEDS: AMITRIPTYLINE HCL 25 MG TAB PO SCH (20:49)
[2025-06-25] MEDS: METOPROLOL SUCC 25MG EXT REL TAB PO SCH (20:50)
--- NOTE | 2025-06-25 23:43 | Cardiac Catheterization ---
[facility] Data: Seismograph Operator Helper Cardiac Status Clinical evaluation leading to the procedure CAD Presenation: Positive Stress Test Diagnostic Physicians Name: Steven Xiong MD Closure Device Recommendations: PCI without planned CABG Cardiac Cath Procedure Full Procedure Date June 25, 2025 Pre-Procedure Diagnosis Pre-Procedure Diagnosis: Angina and Positive Stress Test AUC Score AUC Score: 7 Post-Procedure Diagnosis Post-Procedure Diagnosis: Severe CAD, Successful PCI and Elevated Intracardiac Pressures Procedure(s) Performed Procedure(s) Performed: Coronary Angiography, Left Heart Cath, Right Heart Cath and Drug Eluting Stent Agent Spa Desk Steven Xiong MD Rn Acute Dialysis(s) Showers Estimated Blood Loss Estimated Blood Loss: 25 Medication(s) Medication(s): Clopidogrel, Fentanyl, Heparin, Lidocaine 1%, Nicardipine, Nitroglycerin and Versed Summary of Findings Indication: Exertional dyspnea, indeterminate stress test, abnormal PFTs and question of pulmonary hypertension. Access: 6 Fr right radial artery, 6 Fr right antecubital vein Catheters: 6 Fr [place], [place], JR4 guide Findings: LM -normal caliber, no significant disease LAD -medium caliber, 30-40% ostial stenosis, mid segment luminal irregularities, small distal vessel tapers to apex. Diagonals without significant disease. Circumflex -medium caliber, 20 to 30% proximal disease. 30-40% stenosis in distal vessel after takeoff of OM2 remainder of small AV groove circumflex without disease.. Large OM2 with 30-40% mid stenosis RCA -dominant, medium caliber, 70-80% latemid stenosis. Distal vessel without significant disease. RA 5 RV 41/11 PA 42/8 (23) PAWP 11 LVEDP 18 (systolic blood pressure 192 at the time) PaSat 65 AoSat 94% Thermo CO/CI 5.1/2.7 -- PCI -- Antithrombotic therapy: Heparin, clopidogrel Procedure: RCA cannulated with JR4 guide Pre-procedure flow DARIAN 3 [place] blue blue wire passed across lesion into distal vessel Mid RCA lesion predilated with 2.5 compliant balloon Dilated lesion stented with 2.75 x 33 mm Xience drug-eluting stent Stent post-dilated with 3.5 noncompliant balloon IC vasodilators administered for spasm Post procedure DARIAN 3 flow, stent well expanded with minimal residual stenosis and no apparent cardiac complications. Arterial Closure: TR band Summary: 1. Severe single vessel coronary artery disease - 70-80% mid RCA 30-40% ostial LAD 25% proximal and 35% distal circumflex. 35% mid OM 2 2. Normal right sided filling pressures. 3. Borderline left sided filling pressures in the setting of hypertension 4. Borderline pulmonary hypertension (mean PAP 23) 5. Normal cardiac output 6. Successful PCI of mid to distal RCA with single drug-eluting stent (2.75 x 33 mm Xience; postdilated with 3.5 NC). Recommendations: To PCU for continued monitoring Loaded with clopidogrel 600 mg in Seismograph Operator Helper Continue dual-antiplatelet therapy for at least 6 months Continue ASCVD risk factor modification. Will increase pravastatin to rosuvastatin. Hypertensive during procedure and with borderline LVEDP consider addition of thiazide. Encouraged her to go through with sleep study and follow-up with Dr. Soriano regarding borderline pulmonary hypertension. Hemodynamics Rest Ao:: 194/60/117 Final Ao: 176/67/119 LV: 192/18 Recommendations Recommendations: PCI without planned CABG Radiation Exposure (mGy) 1217 Contrast (mls) 105 Anesthesia Moderate [id number] Procedural Complication(s) None Disposition Seismograph Operator Helper Holding/Recovery I attest to the content of the Intraoperative Record and any orders documented therein. Any exceptions are noted below. [facility] Card Cath Procedure Codes Cardiac Catheterization Procedure 1: Cardiovascular Cath Procedures: 56396 Coronaries & LHC (+/-LV) & RHC Moderate Sedation Procedure 1: Sedation/Anesthesia: 10331 Mod Sedation by the same physician;Init15 Min Child Age 5 & Up Procedure 2: Sedation/Anesthesia: 52982 Mod Sedation by the same physician; Ea [id number] Minutes Stenting Procedure 1: Cardiovascular Stent Procedures: 34292 Perc transcatheter placement of intracoronary stent(s), with ang PG Care Time/CCT Total # of Minutes Spent Total Time Spent with Patient: Total time spent is greater than 50% in coordination of care (as documented) at patient's floor/unit and/or counseling patient:
[2025-06-26] MEDS: LEVOTHYROXINE SODIUM 150 MCG TABLET PO SCH (05:58)
[2025-06-26 07:27] VITALS: RESP 18; TEMP 98.1; O2SAT 95
[2025-06-26] MEDS: CLOPIDOGREL BISULFATE 75 MG TAB PO SCH (08:20)
[2025-06-26] MEDS: LOSARTAN POTASSIUM 50 MG TAB PO SCH (08:20)
[2025-06-26] MEDS: ROSUVASTATIN CALCIUM 20 MG TAB PO SCH (08:20)
[2025-06-26] MEDS: ASPIRIN 81 MG ECTAB PO SCH (08:20)
[2025-06-26 09:34] VITALS: BP 158/83; PULSE 72
--- NOTE | 2025-06-27 11:36 | Discharge Summary ---
Date of Service June 26, 2025 Admission HPI Per Admitting Provider Mrs. Fitzpatrick is a very pleasant 79-year-old woman with a history of hypertension, dyslipidemia, hypothyroidism, and fibromyalgia, presenting today as a new consult for shortness of breath. She is accompanied by her , Varun whom is a patient of ours. She has been experiencing shortness of breath when climbing stairs or walking uphill for the past 3 to 4 months. This issue was discussed with Dr. Thorpe during her wellness visit in March 2025, who subsequently arranged for further testing. During a stress test on May 01, 2025, she was unable to walk quickly and became breathless, necessitating a rest period. This incident mirrored her current symptoms. She reports that her condition seems to be improving, but she still experiences breathlessness when climbing 14 steep steps. She does not experience chest pain, palpitations, or leg swelling. However, she reports chest pain after consuming certain foods, which she attributes to her hiatal hernia. She also experiences dizziness when leaning over while gardening and coughing when lying flat, particularly at bedtime. She does not wake up due to shortness of breath but has been told that she wheezes in her sleep. She has no history of asthma and recent PFTs were non-specific with reduction in her DLCO. She has developed new allergies, particularly when visiting her daughter in [place], even though she takes allergy medication. She recalls an incident where she touched a tree and immediately started coughing severely. She occasionally wakes up with numb hands, which resolves upon movement. She does not take baby aspirin and has no known allergies to contrast dye. She had a stress test a few years ago, which she believes went well. Discharge Data Procedures Performed Operation Date: 06/25/25 09:30 Actual Procedures p Cineradiography w/Routine Exam - Steven Xiong MD p Cath, Right and Left Heart - Steven Xiong MD p Drug Eluting Stent SGl Vessel - Steven Xiong MD Hospital Course (1) CAD (coronary artery disease): Plan On 06/25/2025 underwent right and left heart catheterization via right antecubital vein and right radial artery. Findings: 1. Severe single vessel coronary artery disease - 70-80% mid RCA 30-40% ostial LAD 25% proximal and 35% distal circumflex. 35% mid OM 2 2. Normal right sided filling pressures. 3. Borderline left sided filling pressures in the setting of hypertension 4. Borderline pulmonary hypertension (mean PAP 23) 5. Normal cardiac output 6. Successful PCI of mid to distal RCA with single drug-eluting stent (2.75 x 33 mm Xience; postdilated with 3.5 NC). After procedure she was admitted for post PCI observation. Hospital course unremarkable. She remained chest pain-free and electrically stable on telemetry. No apparent access site complications. Blood pressures elevated during procedure and modestly elevated post procedure. On postprocedure day 1 she was discharged to home on DAPT with aspirin, clopidogrel. With high blood pressure, mildly elevated filling pressures she was started on hydrochlorothiazide. Sleep study encouraged in the setting of borderline pulmonary hypertension. Follow-up with me in 2 to 3 weeks. Discharge Instructions Home Medications calcium 600 mg (as carbonate)-vitamin D3 5 mcg (200 unit) capsule (Calcium 600 + D(3)) 1 cap PO QDL 05/31/19 [History Confirmed 06/25/25] cholecalciferol (vitamin D3) 50 mcg (2,000 unit) tablet 2,000 units PO QAM 09/03/21 [History Confirmed 06/25/25] levothyroxine 150 mcg tablet 150 mcg PO QAM #90 tabs 08/01/24 [Rx Confirmed 06/25/25] vitamins A,C,G-lgsm-chkbxk 4,296 mcg-226 mg-90 mg capsule (PreserVision AREDS) 1 cap PO BID 09/19/24 [History Confirmed 06/25/25] losartan 100 mg tablet 100 mg PO QAM #90 tabs 01/20/25 [Rx Confirmed 06/25/25] metoprolol succinate 50 mg tablet,extended release 24 hr 75 mg (1.5 x 50 mg) PO HS #135 tabs 01/20/25 [Rx Confirmed 06/25/25] celecoxib 200 mg capsule (Celebrex) 200 mg PO DAILY #90 caps 03/19/25 [Rx Confirmed 06/25/25] amitriptyline 25 mg tablet 25 - 50 mg (1 - 2 x 25 mg) PO HS #180 tabs 04/02/25 [Rx Confirmed 06/25/25] tramadol 50 mg tablet 50 mg PO Q6H PRN pain 3 days #20 tabs 04/02/25 [Rx Confirmed 06/25/25] fluticasone propionate 50 mcg/actuation nasal spray,suspension (Flonase Allergy Relief) 1 spray intranasal BID #16 grams 04/24/25 [Rx Confirmed 06/19/25] aspirin 81 mg tablet,delayed release 81 mg PO QAM #30 tabs 06/26/25 [Rx] clopidogrel 75 mg tablet 75 mg PO QAM #30 tabs 06/26/25 [Rx] hydrochlorothiazide 25 mg tablet 25 mg PO DAILY #30 tabs 06/26/25 [Rx] rosuvastatin 20 mg tablet 20 mg PO QAM #30 tabs 06/26/25 [Rx] Coding Level of Care Code 92952 IN/OBS DISCH 30 MIN/LESS Diagnoses CAD (coronary artery disease) I25.10
--- NOTE | 2025-06-27 22:39 | Electrocardiogram Report ---
Test Reason : Blood Pressure : */* mmHG Vent. Rate : 70 BPM Atrial Rate : 70 BPM P-R Int : 140 ms QRS Dur : 80 ms QT Int : 428 ms P-R-T Axes : 52 -7 56 degrees QTcB Int : 462 ms Normal sinus rhythm Normal ECG When compared with ECG of 29-Feb-2024 11:09, No significant change Confirmed by Sixto Shaffer ([id number]) on 06/27/2025 10:38:57 PM Referred By: Steven Xiong Confirmed By: Sixto Shaffer
== END 2025-06-26 10:24 | disposition home or self-care (01) ==
LOC: CC 08:17 → 2S 15:52 → INTOOBSV 15:52